=== PATIENT | female | born 1945 | race Caucasian/White ===

== ENCOUNTER → 2018-04-05 12:41 | Outpatient (CLI) | payer MEDICARE, SELFPAY ==
[2018-04-05 15:33] LABS: ALB/GLOB Ratio 0.9 RATIO (0.9-2.4); AST(SGOT) 18 U/L (15-37); Alanine Aminotransfer ALT/SGPT 18 U/L (13-56); Albumin, Serum 3.3 g/dL (3.2-5.0); Alkaline Phosphatase 76 U/L (45-117); Anion Gap 7 (5-15); BUN 13 mg/dL (7-18); BUN/Creat Ratio 18.9 RATIO (10-20); Calcium,Total 8.7 mg/dL (8.5-10.1); Chloride 110 mmol/L (98-107); Cholesterol 152 mg/dL (200); Creatinine, Serum 0.69 mg/dL (0.55-1.02); EST Glomerular Filtration Rate 89 mL/min (>60); Est Glom Filt Rate - Afr Amer 108 mL/min (>60); Globulin 3.6 g/dL (2.2-4.2); Glucose 77 mg/dL (74-106); High Density Lipoprotein 57 mg/dL; Potassium 3.8 mmol/L (3.5-5.1); Protein, Total 6.9 g/dL (6.4-8.2); Sodium Level 147 mmol/L (136-145); Triglycerides 73 mg/dL; Very Low Density Lipoprotein 15 mg/dL (5-40)
[2018-04-06 08:28] LABS: Vitamin D,25 Hydroxy 45.8 ng/mL (29.95-100.01)
== END ==
PROVIDERS: Family Provider Family Medicine; PCP Family Medicine; Visit Provider Family Medicine
DX: E55.9 Vitamin D deficiency, unspecified (principal); I10 Essential (primary) hypertension; E78.2 Mixed hyperlipidemia
CPT/HCPCS: 80053; 80061; 82306

== ENCOUNTER → 2018-09-30 12:37 | Outpatient (CLI) | payer MEDICARE, SELFPAY ==
[2018-09-30 13:07] LABS: ALB/GLOB Ratio 0.9 RATIO (0.9-2.4); AST(SGOT) 22 U/L (15-37); Alanine Aminotransfer ALT/SGPT 34 U/L (13-56); Albumin, Serum 3.4 g/dL (3.2-5.0); Alkaline Phosphatase 102 U/L (45-117); Anion Gap 9 (5-15); BUN 14 mg/dL (7-18); Calcium,Total 8.8 mg/dL (8.5-10.1); Chloride 107 mmol/L (98-107); Cholesterol 190 mg/dL (200); Creatinine, Serum 0.61 mg/dL (0.55-1.02); EST Glomerular Filtration Rate 102 mL/min (>60); Est Glom Filt Rate - Afr Amer 124 mL/min (>60); Globulin 3.7 g/dL (2.2-4.2); Glucose 84 mg/dL (74-106); High Density Lipoprotein 66 mg/dL; Potassium 4.1 mmol/L (3.5-5.1); Protein, Total 7.1 g/dL (6.4-8.2); Sodium Level 144 mmol/L (136-145); Triglycerides 77 mg/dL; Very Low Density Lipoprotein 15 mg/dL (5-40)
[2018-09-30 13:12] LABS: Vitamin D,25 Hydroxy 37.6 ng/mL (29.95-100.01)
== END ==
PROVIDERS: Family Provider Family Medicine; PCP Family Medicine; Referring Provider Family Medicine; Visit Provider Family Medicine
DX: E78.2 Mixed hyperlipidemia (principal); E55.9 Vitamin D deficiency, unspecified
CPT/HCPCS: 80053; 80061; 82306

== ENCOUNTER → 2019-04-05 11:40 | Outpatient (CLI) | payer MEDICARE, SELFPAY ==
[2017-03-10 23:12] VITALS: BMI 26.1
[2019-04-05 12:45] LABS: ALB/GLOB Ratio 0.9 RATIO (0.9-2.4); AST(SGOT) 17 U/L (15-37); Alanine Aminotransfer ALT/SGPT 18 U/L (13-56); Albumin, Serum 3.1 g/dL (3.2-5.0); Alkaline Phosphatase 84 U/L (45-117); Anion Gap 4 (5-15); BUN 22 mg/dL (7-18); BUN/Creat Ratio 27.5 RATIO (10-20); Calcium,Total 8.6 mg/dL (8.5-10.1); Chloride 110 mmol/L (98-107); Cholesterol 148 mg/dL (200); EST Glomerular Filtration Rate 75 mL/min (>60); Est Glom Filt Rate - Afr Amer 90 mL/min (>60); Globulin 3.6 g/dL (2.2-4.2); Glucose 84 mg/dL (74-106); High Density Lipoprotein 55 mg/dL; Potassium 4.1 mmol/L (3.5-5.1); Protein, Total 6.7 g/dL (6.4-8.2); Sodium Level 142 mmol/L (136-145); Triglycerides 65 mg/dL; Very Low Density Lipoprotein 13 mg/dL (5-40)
[2019-04-05 12:52] LABS: Vitamin D,25 Hydroxy 40.1 ng/mL (29.95-100.01)
== END ==
PROVIDERS: Family Provider Family Medicine; PCP Family Medicine; Referring Provider Family Medicine; Visit Provider Family Medicine
DX: E55.9 Vitamin D deficiency, unspecified (principal); E78.2 Mixed hyperlipidemia; I10 Essential (primary) hypertension
CPT/HCPCS: 80053; 80061; 82306

== ENCOUNTER → 2019-10-05 12:28 | Outpatient (CLI) | payer MEDICARE, SELFPAY ==
[2019-10-05 13:19] LABS: ALB/GLOB Ratio 0.9 RATIO (0.9-2.4); AST(SGOT) 16 U/L (15-37); Alanine Aminotransfer ALT/SGPT 23 U/L (13-56); Albumin, Serum 3.5 g/dL (3.2-5.0); Alkaline Phosphatase 90 U/L (45-117); Anion Gap 3 (5-15); BUN 17 mg/dL (7-18); BUN/Creat Ratio 24.4 RATIO (10-20); Calcium,Total 9.3 mg/dL (8.5-10.1); Chloride 110 mmol/L (98-107); Cholesterol 183 mg/dL (200); EST Glomerular Filtration Rate 87 mL/min (>60); Est Glom Filt Rate - Afr Amer 106 mL/min (>60); Globulin 3.7 g/dL (2.2-4.2); Glucose 84 mg/dL (74-106); High Density Lipoprotein 68 mg/dL; Protein, Total 7.2 g/dL (6.4-8.2); Sodium Level 144 mmol/L (136-145); Triglycerides 94 mg/dL; Very Low Density Lipoprotein 19 mg/dL (5-40)
[2019-10-05 13:45] LABS: Vitamin D,25 Hydroxy 41.4 ng/mL (29.95-100.01)
== END ==
PROVIDERS: Family Provider Family Medicine; PCP Family Medicine; Referring Provider Family Medicine; Visit Provider Family Medicine
DX: E78.2 Mixed hyperlipidemia (principal); E55.9 Vitamin D deficiency, unspecified; I10 Essential (primary) hypertension
CPT/HCPCS: 80053; 80061; 82306

== ENCOUNTER → 2020-04-08 12:49 | Outpatient (CLI) | payer MEDICARE, SELFPAY ==
[2020-04-08 13:46] LABS: Vitamin D,25 Hydroxy 43.6 ng/mL
[2020-04-08 13:47] LABS: Cholesterol 153 mg/dL (200); High Density Lipoprotein 53 mg/dL; Triglycerides 71 mg/dL; Very Low Density Lipoprotein 14 mg/dL (5-40)
== END ==
PROVIDERS: PCP Family Medicine; Referring Provider Family Medicine; Visit Provider Family Medicine
DX: E55.9 Vitamin D deficiency, unspecified (principal); I10 Essential (primary) hypertension
CPT/HCPCS: 80061; 82306

== ENCOUNTER → 2020-10-09 13:16 | Outpatient (CLI) | payer MEDICARE, SELFPAY ==
[2017-03-10 23:12] VITALS: BMI 26.1
[2020-10-09 15:00] LABS: ALB/GLOB Ratio 0.9 RATIO (0.9-2.4); AST(SGOT) 10 U/L (15-37); Alanine Aminotransfer ALT/SGPT 17 U/L (13-56); Albumin, Serum 3.5 g/dL (3.2-5.0); Alkaline Phosphatase 101 U/L (45-117); Anion Gap 3 (5-15); BUN 19 mg/dL (7-18); BUN/Creat Ratio 23.1 RATIO (10-20); Chloride 109 mmol/L (98-107); Cholesterol 193 mg/dL (200); Creatinine, Serum 0.82 mg/dL (0.55-1.02); EST Glomerular Filtration Rate 72 mL/min (>60); Est Glom Filt Rate - Afr Amer 87 mL/min (>60); Globulin 3.8 g/dL (2.2-4.2); Glucose 82 mg/dL (74-106); High Density Lipoprotein 64 mg/dL; Potassium 3.9 mmol/L (3.5-5.1); Protein, Total 7.3 g/dL (6.4-8.2); Sodium Level 144 mmol/L (136-145); Triglycerides 119 mg/dL; Very Low Density Lipoprotein 24 mg/dL (5-40)
== END ==
PROVIDERS: PCP Family Medicine; Visit Provider Family Medicine
DX: E78.2 Mixed hyperlipidemia (principal); I10 Essential (primary) hypertension
CPT/HCPCS: 80053; 80061

== ENCOUNTER → 2021-09-22 12:25 | Outpatient (CLI) | payer MEDICARE, SELFPAY ==
[2021-09-22 13:38] LABS: Vitamin D,25 Hydroxy 33.8 ng/mL
[2021-09-22 13:42] LABS: Cholesterol 192 mg/dL (200); High Density Lipoprotein 67 mg/dL; Thyroid Stim Hormone (TSH) 2.35 uIU/mL (0.358-3.74); Triglycerides 78 mg/dL; Very Low Density Lipoprotein 16 mg/dL (5-40)
== END ==
PROVIDERS: PCP Family Medicine; Visit Provider Family Medicine
DX: E55.9 Vitamin D deficiency, unspecified (principal); E78.2 Mixed hyperlipidemia; E89.0 Postprocedural hypothyroidism
CPT/HCPCS: 80061; 82306; 84443

== ENCOUNTER 2022-03-17 08:18 | Inpatient (IN) | payer MEDICARE, SELFPAY ==
[2022-03-17] VITALS (28 sets, daily range): BP systolic 66–148; BP diastolic 36–116; PULSE 71–150; RESP 16–34; TEMP 36.1–38.8; O2SAT 89–98; BMI 24.6; BMI 26.0
--- NOTE | 2022-03-17 08:39 | EDS_ITS ---
HPI HPI - GI History of Present Illness Chief Complaint: Nausea/Vomiting Informant: patient Abdominal Pain/Flank Pain Onset: Days (4) Context: Gradual Onset Timing: Continuous Quality: Cramping Location: Right Flank Worsened by: Nothing Relieved by: Nothing Nausea/Vomiting/Emesis GI Symptom: Positive for Nausea and Vomiting Onset: Days (4) Quality: Positive for Nonbilious; Negative for Blood streaks, Coffee ground or Hematemesis Diarrhea/Melena/Hematochezia GI Symptom: Positive for Diarrhea; Negative for Melena or Hematochezia Onset: Days (4) Stool Quality: Positive for Watery Associated Symptoms Associated Symptoms: Negative for Dysuria, Frequency, Hematuria or Urgency Narrative Narrative: Patient presents with nausea, vomiting, diarrhea, and back pain that has been constant for the past 4 days. Patient states it is gradually gotten worse. Patient describes it as cramping. Patient states the pain is mainly over the right lower flank area. Patient states she is unable to keep anything down. Patient denies any hematemesis or coffee-ground emesis. Patient denies any melena or hematochezia. Patient denies any dysuria, urgency, frequency, or hematuria. [facility] Medical History (Updated 03/17/22 @ 14:[address] Shalom Yun, DO) COPD (chronic obstructive pulmonary disease) Diverticulosis GERD (gastroesophageal reflux disease) History of nephrolithiasis Hypertension Home Medications lactobacillus combination no.4 3 billion cell capsule (Probiotic) 1 ea PO DAILY SUPPLEMENT 03/10/17 [History Last Taken 03/14/22] lisinopril 10 mg tablet 1 tab PO DAILY 03/10/17 [History Last Taken 03/14/22] simvastatin 40 mg tablet 40 mg PO QHS 03/10/17 [History Last Taken 03/14/22] timolol maleate 0.5 % eye drops 1 drp BID 03/10/17 [History Last Taken 03/17/22] brimonidine 0.2 % eye drops 1 drp EACH EYE BID GLUACOMA 03/17/22 [History Last Taken 03/17/22] cholecalciferol (vitamin D3) 25 mcg (1,000 unit) tablet 25 mcg PO DAILY SUPPLEMENT 03/17/22 [History Last Taken 03/14/22] magnesium oxide 400 mg PO DAILY 03/17/22 [History Last Taken 03/14/22] omega-3 fatty acids-vitamin E 1,000 mg capsule 1 cap PO DAILY SUPPLEMENT 03/17/22 [History Last Taken 03/14/22] Allergy/AdvReac Type Severity Reaction Status Date / Time No Known Allergies Allergy Verified 03/17/22 08:19 Surgical History (Updated 03/17/22 @ 08:[address] Shalom Yun, DO) History of herniorrhaphy Hx of hysterectomy Social History Smoking Status: Former smoker ROS ROS ED Constitutional Constitutional ED: Denies chills or fever(s) Eyes Eyes: Reports blurry vision; Denies change in vision ENT ENT ED: Denies rhinorrhea or sore throat Cardiovascular Cardiovascular: Denies chest pain or palpitations Respiratory/Chest Respiratory/Chest: Denies cough or dyspnea Gastrointestinal Gastrointestinal: Reports abdominal pain, diarrhea, nausea and vomiting Genitourinary Genitourinary ED: Denies dysuria or hematuria Musculoskeletal Musculoskeletal: Reports back pain; Denies neck pain Integumentary Denies abscess or rash Neurologic Neurologic: Denies headache(s) or weakness Allergic/Immunologic Allergic/Immunologic ED: Denies mouth swelling or urticaria EXAM Physical Exam Const Vital Signs: 03/17/22 08:19 03/17/22 10:43 03/17/22 12:08 Temperature 96.9 F L Temperature Source Temporal Pulse Rate 96 71 71 Respiratory Rate 18 16 16 Blood Pressure 93/73 128/76 H 148/73 H Blood Pressure Mean 79 93 98 Pulse Ox 96 98 98 Oxygen Delivery Method Room Air Room Air Room Air Oxygen Flow Rate (L/min) 03/17/22 13:44 Temperature Temperature Source Pulse Rate 150 H Respiratory Rate 34 H Blood Pressure 130/85 H Blood Pressure Mean 100 Pulse Ox 92 Oxygen Delivery Method Nasal Cannula Oxygen Flow Rate (L/min) 2 Positive well nourished and well developed General Appearance ED: well developed HEENT Reports moist mucous membranes Neck supple and no JVD Resp normal respiratory effort and clear to auscultation bilaterally Cardio regular rate, regular rhythm and no murmurs GI normal to inspection, nondistended, normoactive bowel sounds and non-tender Palpation: soft Extremity normal to inspection General Extremety ED: Negative for edema or tenderness General Extremity: Negative for edema Neuro oriented x3, CN's II-XII intact bilaterally and no sensory deficits noted Sensorium / Orientation: alert Motor Exam: strength 5/5 throughout Psych mental status grossly normal Skin no rashes or lesions noted MDM MDM MDM Narrative Medical decision making narrative: Patient was given IV fluids and Zofran here. Patient was also given a dose of morphine. CBC shows a leukocytosis of 18.0. Basic metabolic profile showed a BUN of 56 and creatinine of 2.41 which were increased from baseline. Hepatic profile was essentially within normal limits. Lipase was normal. CT scan of the abdomen and pelvis was obtained. There is an 8 mm obstructing stone at the left UPJ with moderate hydronephrosis and perinephric edema. This was interpreted by the radiologist and reviewed by myself. Urinalysis shows leukocyte esterases of 500 with 25-50 red blood cells and 25-50 white blood cells. There is 3+ bacteria. Urine culture was ordered. Blood cultures were ordered. Patient was given a dose of Rocephin here. Case was discussed with Dr. Mak. She recommended admitting the patient to the hospitalist service but keep the patient n.p.o. She states she will need to place a stent. Case was discussed with the hospitalist. She will admit the patient to her service. As I was talking to the hospitalist, patient went into atrial fibrillation with rapid ventricular response. EKG was ordered. On my interpretation, it shows atrial fibrillation with a rate of 146. There are nonspecific ST-T wave changes. Patient was given a dose of Cardizem here. Patient will be admitted to PCU. Patient and family understood and were agreeable with the plan. All questions were answered. Lab Data Attestation: I reviewed the patient's lab results. Labs: Laboratory Results - last 24 hr 03/17/22 03/17/22 03/17/22 08:32 08:32 08:32 WBC 18.0 H RBC 4.16 L Hgb 12.2 Hct 36.2 L MCV 87.0 MCH 29.3 MCHC 33.7 RDW Std Deviation 45.0 H RDW Coeff of Isaiah 14.0 Plt Count 170 MPV 11.5 Neut % (Auto) Not Reportable Absolute Neuts (auto) 15.8 H Absolute Lymphs (auto) 0.90 Total Counted 100 Neutrophils % (Manual) 70 Band Neutrophils % 18 H Lymphocytes % (Manual) 5 L Monocytes % (Manual) 7 Diff Path Review May foll Platelet Estimate ADEQUATE RBC Morphology NORM C+C Sodium 135 L Potassium 3.8 Chloride 100 Carbon Dioxide 23.0 Anion Gap 12 BUN 56 H Creatinine 2.41 H Estim Creat Clear Calc 15.46 Est GFR (MDRD) Af Amer 25 L Est GFR (MDRD) Non-Af 21 L BUN/Creatinine Ratio 23.2 H Glucose 129 H Calcium 8.7 Total Bilirubin 1.00 Direct Bilirubin 0.34 H AST 43 H ALT 29 Alkaline Phosphatase 115 Total Protein 6.8 Albumin 2.5 L Globulin 4.3 H Lipase 41 L Urine Color Urine Clarity Urine pH Ur Specific [place] Urine Protein Urine Glucose (UA) Urine Ketones Urine Occult Blood Urine Nitrite Urine Bilirubin Urine Urobilinogen Ur Leukocyte Esterase Urine RBC Urine WBC Ur Squamous Epith Cells Urine Bacteria Fine Granular Casts Urine Mucus 03/17/22 11:54 WBC RBC Hgb Hct MCV MCH MCHC RDW Std Deviation RDW Coeff of Isaiah Plt Count MPV Neut % (Auto) Absolute Neuts (auto) Absolute Lymphs (auto) Total Counted Neutrophils % (Manual) Band Neutrophils % Lymphocytes % (Manual) Monocytes % (Manual) Diff Path Review Platelet Estimate RBC Morphology Sodium Potassium Chloride Carbon Dioxide Anion Gap BUN Creatinine Estim Creat Clear Calc Est GFR (MDRD) Af Amer Est GFR (MDRD) Non-Af BUN/Creatinine Ratio Glucose Calcium Total Bilirubin Direct Bilirubin AST ALT Alkaline Phosphatase Total Protein Albumin Globulin Lipase Urine Color Yellow Urine Clarity Sl. Cloudy Urine pH 6.0 Ur Specific [place] 1.020 Urine Protein 100 H Urine Glucose (UA) Normal Urine Ketones Negative Urine Occult Blood 250 H Urine Nitrite Negative Urine Bilirubin Negative Urine Urobilinogen Normal Ur Leukocyte Esterase 500 H Urine RBC 25-50 SEEN Urine WBC 25-50 SEEN Ur Squamous Epith Cells 0-5 SEEN Urine Bacteria 3+ Fine Granular Casts 0-5 SEEN Urine Mucus 0 SEEN Radiography Diagnostic Testing: Clinical Impression(s) from Imaging Studies Abdomen/Pelvis CT 03/17/22 08:45 IMPRESSION: 8 mm obstructing stone at the left ureteropelvic junction with moderate hydronephrosis and perinephric edema. Electronically Signed: Calvin Perez MD at 9:28 EDT , Discharge Plan Triage Chief Complaint: Nausea/Vomiting ED Provider: Shalom Yun Dx/Rx/DC Orders Clinical Impression: Calculus of proximal left ureter, Pyelonephritis, Atrial fibrillation with rapid ventricular response Prescriptions: No Action simvastatin 40 MG tablet 40 mg PO QHS Label Comments: cholesterol lisinopril 10 MG tablet 1 tab PO DAILY Label Comments: blood pressure timolol maleate 1 DROP drops 1 drp Each Eye BID Label Comments: glaucoma Probiotic 1 EACH capsule 1 ea PO DAILY Label Comments: supplement brimonidine 0.2 % drops 1 drp EACH EYE BID Label Comments: INSTILL 1 DROP IN BOTH EYES TWICE DAILY Fish Oil 1,000 mg Capsule 1 cap PO DAILY cholecalciferol (vitamin D3) 25 mcg (1,000 unit) Tablet 25 mcg PO DAILY magnesium oxide 400 mg magnesium Tablet 400 mg PO DAILY Primary Care Provider: Sung Rosario Referrals: Sung Rosario MD [Primary Care Provider] - Disposition Disposition: Acute Care Hospital [facility]
--- NOTE | 2022-03-17 08:45 | CT_ITS ---
STUDY: CT ABDOMEN AND PELVIS WITHOUT CONTRAST REASON FOR EXAM: Female, 76 years old. Right flank pain RADIATION DOSAGE (If Supplied By Facility): CTDIvol = ( 6.68 ) mGy, DLP = ( 330.49 ) mGycm TECHNIQUE: Transaxial images were obtained from the dome of the diaphragm to the symphysis pubis without oral contrast, and without intravenous contrast. Sagittal and coronal images were reconstructed. Individualized dose optimization techniques were used for this CT. COMPARISON: None. FINDINGS: The visualized lung bases are unremarkable. The visualized portions of the heart are within normal limits. Normal liver. Normal gallbladder and extrahepatic biliary system. Normal spleen. Normal pancreas. Normal bilateral adrenal glands. Normal right kidney. 8 mm obstructing stone at the left ureteropelvic junction with moderate hydronephrosis and perinephric edema. Normal visualized stomach. Normal small intestine. Normal colon. There is non-visualization of the appendix. Normal abdominal aorta. Normal inferior vena cava. Normal retroperitoneum. Normal urinary bladder. Normal abdominal wall. Mild levoscoliosis of the lumbar spine which are this disease. CT/Abdomen/Pelvis without Cont IMPRESSION: 8 mm obstructing stone at the left ureteropelvic junction with moderate hydronephrosis and perinephric edema. Electronically Signed: Calvin Perez MD at 9:28 EDT ,
[2022-03-17 08:46] LABS: Hematocrit 36.2 % (37-47); Hemoglobin 12.2 g/dL (12.0-15.0); Mean Corp Hgb Conc 33.7 g/dL (32-36); Mean Corpuscular Hgb 29.3 pg (27.0-32.0); Mean Platelet Vol. 11.5 fl (6.2-12.0); POSITIVE COUNT YES; POSITIVE MORPHOLOGY YES; Platelet Count 170 K/mm3 (150-450); Red Blood Count 4.16 M/mm3 (4.2-5.4)
[2022-03-17 08:50] LABS: Anion Gap 12 (5-15); BUN 56 mg/dL (7-18); BUN/Creat Ratio 23.2 RATIO (10-20); Calcium,Total 8.7 mg/dL (8.5-10.1); Chloride 100 mmol/L (98-107); Creatinine, Serum 2.41 mg/dL (0.55-1.02); EST Glomerular Filtration Rate 21 mL/min (>60); Est Glom Filt Rate - Afr Amer 25 mL/min (>60); Estimated Creatinine Clearance 15.46 ml/min; Glucose 129 mg/dL (74-106); Potassium 3.8 mmol/L (3.5-5.1); Sodium Level 135 mmol/L (136-145)
[2022-03-17] MEDS: 0.9% Normal Saline 1,000 ML 1000 ML IV ×3 (08:50→14:21)
[2022-03-17] MEDS: Ondansetron 4 MG/2 ML Vial IV (08:51)
[2022-03-17 08:54] LABS: Differential Indicated MANUAL DIFF
[2022-03-17 09:16] LABS: AST(SGOT) 43 U/L (15-37); Alanine Aminotransfer ALT/SGPT 29 U/L (13-56); Albumin, Serum 2.5 g/dL (3.2-5.0); Alkaline Phosphatase 115 U/L (45-117); Bilirubin, Direct 0.34 mg/dL (0.00-0.30); Globulin 4.3 g/dL (2.2-4.2); Lipase 41 U/L (73-393); Protein, Total 6.8 g/dL (6.4-8.2)
[2022-03-17 09:31] LABS: Lymphocyte 5 % (19-41); Monocyte 7 % (0-10); Neutrophil-Band 18 % (0-5); Neutrophil-Segmented 70 % (47-70); Total Cells Counted 100 (MANUAL DIFF)
[2022-03-17 09:33] LABS: Platelet Estimate ADEQUATE (ADEQ); Red Cell Morphology NORM C+C NORMAL (NORM C&C)
[2022-03-17 09:35] LABS: Absolute Neutrophil Count 15.8 X10^3/uL (2.0-7.7)
[2022-03-17 12:03] LABS: Mucous, Urine 0 SEEN /hpf (<or=2+)
[2022-03-17 12:26] LABS: Color, Urine Yellow (Yellow); Glucose, Dipstick Normal (Normal); Ketone-Dipstick Negative (Negative); Leukocyte Esterase-Dipstick 500 /ul (Negative); Nitrite-Dipstick Negative (Negative); Occult Blood-Urine 250 /ul (Negative); Protein-Dipstick 100 mg/dl (Negative); Urine Bilirubin Dipstick Negative (Negative); Urine Clarity Sl. Cloudy (Clear); Urine Urobilinogen Normal (Normal)
[2022-03-17] MEDS: Ceftriaxone 1 GM/50 ML BAG IV (12:30)
[2022-03-17 12:41] LABS: Bacteria 3+ /hpf (None Seen); Fine Granular Cast- Urine 0-5 SEEN /lpf (0-5); Red Blood Cells-Urine 25-50 SEEN /hpf (0-5); Squamous Epithelial Cells - UA 0-5 SEEN /hpf (5-10); White Blood Cells 25-50 SEEN /hpf (0-5)
[2022-03-17] MEDS: Morphine 4 MG/ML Syringe IV (13:41)
--- NOTE | 2022-03-17 13:54 | ED.RN ---
THIS RN AT BEDSIDE TO MEDICATE PATIENT. PT WITH SOB, PALE IN COLOR. PT WAS SITTING UP IN BED, ASSISTED BACK TO BED AND PLACED ON MONITOR. PT HR IN 170'S, PT WITH INCREASED WORK OF BREATHING. PT SATTING 87% MON ROOM AIR. PT PLACED ON 2L NC. MEDICATED WITH MORPHINE PER ORDER. DR. EASTON AT BEDSIDE.
--- NOTE | 2022-03-17 13:55 | EKG12_ITS ---
Test Reason : SOB Blood Pressure : / mmHG Vent. Rate : 146 BPM Atrial Rate : 141 BPM P-R Int : 000 ms QRS Dur : 080 ms QT Int : 330 ms P-R-T Axes : 000 035 236 degrees QTc Int : 514 ms Poor data quality, interpretation may be adversely affected Atrial fibrillation Nonspecific ST and T wave abnormality Abnormal ECG Confirmed by JOSE RAMIREZ, PHYLLIS ([id number]), technical writer and editor BEHZAD ALFORD ([id number]) on 03/19/2022 10:19:56 AM Referred By: JEMMA Confirmed By:PHYLLIS GARCIA MD
[2022-03-17] MEDS: dilTIAZem 25 MG/5 ML Vial 20 MG IV BOLUS (14:02)
[2022-03-17 14:49] LABS: Magnesium 1.8 mg/dL (1.6-2.6)
--- NOTE | 2022-03-17 15:18 | ECHOCS_ITS ---
Reason For Study: Afib/Flutter Procedure This was a 2D Doppler, Color Flow transthoracic echocardiogram. The study was technically difficult. Contrast injection was performed. Exam performed portable in ICU/CCU. Left Ventricle Normal LV size. Left ventricular systolic function is normal. The estimated ejection fraction is 65 %. No regional wall motion abnormalities noted. Right Ventricle Normal RV size. Normal systolic function. Atria The left atrium is mildly enlarged. The right atrium is mildly enlarged. No doppler evidence for ASD. Mitral Valve There is no mitral annular calcification. Mild focal mitral valve calcification of the anterior leaflet. Mitral valve doming/Hockey Sticking. Moderate (2+) eccentric mitral valve insufficiency. Tricuspid Valve Normal tricuspid valve. Moderate (2+) tricuspid valve insufficiency. Right ventricular systolic pressure estimated to be 38 mmHg. Aortic Valve Trisinus/trileaflet aortic valve. Mild diffuse aortic valve thickening. Mild focal aortic valve calcification. Pulmonic Valve The pulmonic valve is not well visualized. Great Vessels Normal sized aortic root. Pericardium/Pleural No pericardial effusion. Medication Diluted definity 2ml given slow IV push to enhance endocardial definition. MMode/2D Measurements & Calculations LVIDd: 4.2 cm IVSd: 0.81 cm Ao root diam: 2.9 cm LVIDs: 2.8 cm LVPWd: 0.70 cm LA dimension: 4.5 cm FS: 32.5 % LAV(MOD-bp): 72.4 ml LVAd ap4: 28.0 cm2 SV(MOD-sp4): 58.0 ml LAV(MOD-bp) Indexed: 43.8 ml/m2 LVLd ap4: 7.4 cm LAV(MOD-sp2): 66.6 ml EDV(MOD-sp4): 86.6 ml LAV(MOD-sp4): 77.9 ml EDV(sp4-el): 89.7 ml LVAs ap4: 14.6 cm2 LVLs ap4: 6.4 cm ESV(MOD-sp4): 28.6 ml ESV(sp4-el): 27.9 ml EF(MOD-sp4): 67.0 % EF(sp4-el): 68.9 % SV(sp4-el): 61.8 ml LA A4 area: 23.8 cm2 RA A4 area: 19.3 cm2 Time Measurements MV dec time: 0.21 sec Doppler Measurements & Calculations MV E max elver: 132.1 cm/sec Lat Peak E' Elver: 8.8 cm/sec Med Peak E' Elver: 6.1 cm/sec MV A max elver: 62.0 cm/sec E/E' lat: 14.9 E/E' med: 21.8 MV E/A: 2.1 MV V2 max: 131.0 cm/sec MV P1/2t max elver: 131.9 cm/sec Ao V2 max: 154.1 cm/sec MV max P.9 mmHg MV P1/2t: 68.1 msec Ao max P.5 mmHg MV V2 mean: 60.9 cm/sec MV mean P.8 mmHg MV dec slope: 567.3 cm/sec2 MV V2 VTI: 31.9 cm MVA(P1/2t): 3.2 cm2 LV V1 max: 111.8 cm/sec MR max elver: 503.0 cm/sec PA V2 max: 81.9 cm/sec LV V1 max P.0 mmHg MR max P.2 mmHg MR mean elver: 376.5 cm/sec MR mean P.0 mmHg MR VTI: 163.5 cm TR max elver: 295.2 cm/sec TR max P.9 mmHg ECHO/Echo Complete W/ Contrast Interpretation Summary The study was technically difficult. Contrast injection was performed. Left ventricular systolic function is normal. The estimated ejection fraction is 65 %. The left atrium is mildly enlarged. The right atrium is mildly enlarged. Mild focal mitral valve calcification of the anterior leaflet. Mitral valve doming/Hockey Sticking Moderate (2+) eccentric mitral valve insufficiency. Moderate (2+) tricuspid valve insufficiency. Mild diffuse aortic valve thickening. Mild focal aortic valve calcification. Right ventricular systolic pressure estimated to be 38 mmHg. Transmitral diastolic flow velocities suggest diastolic dysfunction (pseudonorm al pattern). Ordering Physician: Maliha Webster Referring Physician: MD Marlene Sung Performed By: Cas Brown RCS
--- NOTE | 2022-03-17 15:43 | HP.PCM.HOS_ITS ---
HPI - General General Date of Admission: 03/17/22 Date of Service: 03/17/22 Chief Complaint: Bilateral flank pain, more on the left - 1 week Nausea and vomiting - 3 days HPI Jaye JUAREZ, is a 76 F who presents the above. Patient has history of hypertension, remote history of kidney stones in the past, and was in her usual state of health until about a week ago when she started complaining of bilateral flank and back pain. She denied any fever or chills. Over the last 3 days she has had diarrhea with nausea and vomiting. She last vomited this morning about 2 hours prior to admission. Her vitals in the ED showed blood pressure 93/73, heart rate 96, respiratory rate 18, temperature 96.9 F, oxygen saturation of 96% on room air. Her WBC count 18.0, with bandemia, 18%, Hb 12.2, platelet count 170, sodium 135, potassium 3.8, chloride 100, bicarbonate 23, BUN 56, creatinine 2.41, previous creatinine a year ago was normal, magnesium was 1.8. UA was slightly cloudy, ketones negative, nitrate negative, leukocyte esterase 500, WBC 25-50, 3+ bacteria [facility] Medical History COPD (chronic obstructive pulmonary disease) Diverticulosis GERD (gastroesophageal reflux disease) History of nephrolithiasis Hypertension Home Medications lactobacillus combination no.4 3 billion cell capsule (Probiotic) 1 ea PO DAILY SUPPLEMENT 03/10/17 [History Last Taken 03/14/22] lisinopril 10 mg tablet 1 tab PO DAILY 03/10/17 [History Last Taken 03/14/22] simvastatin 40 mg tablet 40 mg PO QHS 03/10/17 [History Last Taken 03/14/22] timolol maleate 0.5 % eye drops 1 drp BID 03/10/17 [History Last Taken 03/17/22] brimonidine 0.2 % eye drops 1 drp EACH EYE BID GLUACOMA 03/17/22 [History Last Taken 03/17/22] cholecalciferol (vitamin D3) 25 mcg (1,000 unit) tablet 25 mcg PO DAILY S UPPLEMENT 03/17/22 [History Last Taken 03/14/22] magnesium oxide 400 mg PO DAILY 03/17/22 [History Last Taken 03/14/22] omega-3 fatty acids-vitamin E 1,000 mg capsule 1 cap PO DAILY SUPPLEMENT 2 [History Last Taken 03/14/22] Allergy/AdvReac Type Severity Reaction Status Date / Time No Known Allergies Allergy Verified 03/17/22 08:19 Family History Mother Heart disease Father Cancer liver cancer Surgical History History of herniorrhaphy Hx of hysterectomy Social History (Updated 03/17/22 @ 15:[address] Maliha Webster MD) household members: spouse and family Smoking Status: Former smoker alcohol intake: never substance use type: does not use ROS ROS Narrative Constitutional: Reports: Malaise, Weakness, Fatigue, anorexia Denies: Chills, Fever, Night Sweats, Weight Change Eyes: Denies: Blurred vision, Cataracts, Conjunctivae Inflammation, Pain, Rednes s, Vision Change HEENT: Denies: Difficulty Hearing, Difficulty Swallowing, Head Aches, Hearing Changes, Sinus Congestion, Sinus Drainage Cardiovascular: Denies: Chest Pain, Orthopnea, Palpitations Respiratory: Denies: Cough, Shortness of breath at rest, Sputum production Gastrointestinal: Admits to nausea and vomiting Denies: Abdominal Pain Genitourinary: Denies: Dysuria Musculoskeletal: Denies: Joint Pain, Joint stiffness, Joint swelling, Joint Tenderness Skin: Denies: Rash, Wounds Neurological: Denies: Numbness, Tingling, Focal weakness Vital Signs Vital Signs Vital Signs: 03/17/22 08:19 03/17/22 10:43 03/17/22 12:08 Temperature 96.9 F L Temperature Source Temporal Pulse Rate 96 71 71 Respiratory Rate 18 16 16 Blood Pressure 93/73 128/76 H 148/73 H Blood Pressure Mean 79 93 98 Blood Pressure Source Blood Pressure Position Blood Pressure Location Pulse Ox 96 98 98 Oxygen Delivery Method Room Air Room Air Room Air Oxygen Flow Rate (L/min) 03/17/22 13:44 03/17/22 14:10 03/17/22 15:16 Temperature 96.9 F L 102 F H Temperature Source Temporal Temporal Pulse Rate 150 H 107 H 149 H Respiratory Rate 34 H 16 24 H Blood Pressure 130/85 H 124/68 H 117/56 L Blood Pressure Mean 100 86 76 Blood Pressure Source Monitor Blood Pressure Position Semi-Fowlers Blood Pressure Location Right Arm Pulse Ox 92 94 90 Oxygen Delivery Method Nasal Cannula Nasal Cannula Nasal Cannula Oxygen Flow Rate (L/min) 2 2 2 03/17/22 15:18 Temperature Temperature Source Pulse Rate Respiratory Rate Blood Pressure Blood Pressure Mean Blood Pressure Source Blood Pressure Position Blood Pressure Location Pulse Ox Oxygen Delivery Method Nasal Cannula Oxygen Flow Rate (L/min) Weight Weight: 64.592 kg Body Mass Index (BMI) 26.0 Physical Exam Narrative Physical exam: General: Alert, Oriented x3, Cooperative, appears unwell HEENT: Atraumatic Oral: Very dry mucosa, coated, furred tongue Neck: Supple Lungs: Diminished to auscultation Cardiovascular: HS I+II, irregular,tachycardic, holosystolic murmur 3/6 Abdomen: Bowel Sounds Present, Soft, Non Tender Extremities: No edema Skin: No rashes, No breakdown Neurological: Grossly intact Psych/Mental Status: Appropriate Results Lab / Micro Data Result Diagrams: 03/17/22 08:32 03/17/22 08:32 Labs: Laboratory Results - last 24 hr 03/17/22 08:32: WBC 18.0 H, RBC 4.16 L, Hgb 12.2, Hct 36.2 L, MCV 87.0, MCH 29.3, MCHC 33.7, RDW Std Deviation 45.0 H, RDW Coeff of Isaiah 14.0, Plt Count 170, MPV 11.5, Neut % (Auto) Not Reportable, Absolute Neuts (auto) 15.8 H, Absolute Lymphs (auto) 0.90, Total Counted 100, Neutrophils % (Manual) 70, Band Neutrophils % 18 H, Lymphocytes % (Manual) 5 L, Monocytes % (Manual) 7, Diff Path Review January, Platelet Estimate ADEQUATE, RBC Morphology NORM C+C 03/17/22 08:32: Sodium 135 L, Potassium 3.8, Chloride 100, Carbon Dioxide 23.0, Anion Gap 12, BUN 56 H, Creatinine 2.41 H, Estim Creat Clear Calc 15.46, Est GFR (MDRD) Af Amer 25 L, Est GFR (MDRD) Non-Af 21 L, BUN/Creatinine Ratio 23.2 H, Glucose 129 H, Calcium 8.7 03/17/22 08:32: Total Bilirubin 1.00, Direct Bilirubin 0.34 H, AST 43 H, ALT 29, Alkaline Phosphatase 115, Total Protein 6.8, Albumin 2.5 L, Globulin 4.3 H, Lipase 41 L 03/17/22 08:32: Magnesium 1.8 03/17/22 11:54: Urine Color Yellow, Urine Clarity Sl. Cloudy, Urine pH 6.0, Ur Specific [place] 1.020, Urine Protein 100 H, Urine Glucose (UA) Normal, Urine Ketones Negative, Urine Occult Blood 250 H, Urine Nitrite Negative, Urine Bilirubin Negative, Urine Urobilinogen Normal, Ur Leukocyte Esterase 500 H, Urine RBC 25-50 SEEN, Urine WBC 25-50 SEEN, Ur Squamous Epith Cells 0-5 SEEN, Urine Bacteria 3+, Fine Granular Casts 0-5 SEEN, Urine Mucus 0 SEEN Radiology Impression Abdomen/Pelvis CT 03/17/22 08:45 IMPRESSION: 8 mm obstructing stone at the left ureteropelvic junction with moderate hydronephrosis and perinephric edema. Electronically Signed: Calvin Perez MD at 9:28 EDT , Assessment & Plan Assessment/Plan (1) Sepsis: (2) Calculus of proximal left ureter: (3) Atrial fibrillation with rapid ventricular response: PLAN: Plan 1. Sepsis secondary to acute infected kidney stone/Acute complicated UTI Patient is tachycardic, has leukocytosis and has an acute UTI/kidney stone with evidence of acute kidney injury Patient's underlying problem is the large kidney stone which appears infected UA suggestive of acute UTI Patient received IV fluids and IV ceftriaxone Blood and urine cultures were sent from the ED Would continue IV fluids and IV Zosyn Urology consulted from the ED?patient going for ureteroscopy/lithotripsy this evening 2. A. fib with RVR secondary to current sepsis. Patient with no history of A. fib She presented not in A. fib but developed A. fib a few hours ago in the ED She received Cardizem and that gave her transient hypotension that was responsive to fluid Sepsis is the trigger for this current A. fib with RVR Will check TSH, magnesium level(1.8) 2D echo Cardiology consult?discussed with cardiology -we will give digoxin 500 mcg x 1, amiodarone bolus with drip Will continue on IV fluids Would hold off on anticoagulation for now and watch for the next couple of hours to see if it resolved 3. PRADEEP, likely post-renal secondary to 8 mm kidney stone Patient has hydronephrosis on CT of the abdomen and pelvis Previous creatinine was less than 1, creatinine is 2.41 Patient is going for uteroscopy with stent placement today Will trend labs in am 4. Hypertension, now relatively hypotensive Would hold off on lisinopril in the light of PRADEEP Will continue on IV fluids and monitor 5. Hyponatremia, hypovolemic, sodium is 135, will continue on IV fluids, repeat blood work in a.m. 6. Hypomagnesemia, 1.8, replaced, recheck in am 7. Hyperlipidemia, continue statin 8. DVT PPx- SCDs as patient will be going for a procedure; will consider Heparin in am 9. I discussed and explained in details the various types of CODE STATUS-full code, DNR CCA, DNR CC. Patient chose to be DNR CCA, no intubation. Time spent discussing CODE STATUS 18 minutes Charges/Coding Visit Charges Inpatient E&M: 58968 Init Hosp L3 Procedures Hospitalists Procedures: 70053 Advncd Care Plan 30 Min
[2022-03-17] MEDS: Digoxin 250 MCG/ML Ampul 500 MCG IV (15:51)
[2022-03-17 16:14] LABS: Thyroid Stim Hormone (TSH) 1.25 uIU/mL (0.358-3.74)
--- NOTE | 2022-03-17 16:37 | CON.PCM.CA_ITS ---
Assessment & Plan Assessment/Plan (1) Atrial fibrillation with rapid ventricular response: PLAN: The patient is noted to have atrial fibrillation. The etiology may be multifactorial. This could include a combination of her age, hypertension, and her acute noncardiac/infectious disease diagnosis. At the present time the patient is being monitored. She is continuing rate control therapy. This is included a dose of digitalis and attempt to assist with her rate hopefully without any adverse effects on her blood pressure. She may need additional rate control therapy and/or attempt at antiarrhythmic therapy with an attempt at assisting rate as well as hopefully regaining sinus rhythm. This can include agents such as IV amiodarone unless otherwise not tolerated. She may need to be considered for anticoagulant therapy (if she does not regain sinus rhythm) once her urologic procedure is complete and depending upon the results of her procedure. Also, depending upon her clinical course and findings, she may or may not need to be considered for an attempt at synchronized biphasic DC cardioversion. (2) Calculus of proximal left ureter: PLAN: She has been diagnosed with a left ureteral calculus. She is pending further urologic evaluation/procedure to remove this obstruction. (3) Pyelonephritis: PLAN: She has been diagnosed with UTI compatible with pyelonephritis. She has been placed on antibiotic therapy. (4) Sepsis: PLAN: She has been diagnosed with sepsis. She is receiving IV fluids and IV antibiotics. (5) Acute renal insufficiency: PLAN: She does have what appears to be acute renal insufficiency. This may be secondary to her ongoing urologic issues/obstruction/infection. Hopefully this will improve once the obstruction is removed. In the meantime her renal function will need to be taken into consideration with respect to medications/dosages, etc. (6) HLD (hyperlipidemia): PLAN: She has been on lipid-lowering agents. It appears this can be continued unless otherwise contraindicated. (7) Hypertension: QUALIFIERS: Hypertension type: essential hypertension Qualified Code(s): I10 - Essential (primary) hypertension PLAN: She has a history of hypertension. She states that has been reasonably well controlled on her home medications. At the moment her blood pressure is low which may be a combination of etiologies with respect to her atrial fibrillation superimposed upon an underlying sepsis syndrome and any lingering effects from her previous IV diltiazem medication. At the moment she is receiving blood pressure support with IV fluids. (8) Preoperative cardiovascular examination: PLAN: From a cardiovascular standpoint the patient will need continued cardiovascular monitoring with respect to cardiac rate, rhythm, and blood pr essure during and following her surgical procedure. An attempt should be made to avoid significant fluctuations in her vital signs as best as possible during and following her procedure. Based upon her atrial fibrillation it is known that her cardiac rate may remain somewhat elevated during her ongoing acute urologic issues/sepsis. It may be challenging to bring her rate under better control until these issues are brought under better control. She may need support of her blood pressure based upon her diagnosis with IV fluids and/or if need be IV vasopressor agents. Hopefully with no previous cardiovascular diagnosis/symptoms or other objective findings thus far her cardiovascular risk for adverse cardiovascular events from noncardiac surgery will be At a minimum. Addt'l Comments The patient's case has been discussed and reviewed with the patient, the patient's family, and Dr. Webster HPI Consult Data Date of Consult: 03/17/22 HPI Narrative HPI Narrative: MARILEE JUAREZ, is a 76 year old white female who presents who is referred for evaluation of atrial fibrillation/RVR superimposed upon a history of hyperlipidemia and hypertension in the setting of a left ureteral calculus/pyelonephritis/sepsis/acute renal insufficiency. The patient was well until recently when she noted backslash flank discomfort. She subsequently has developed nausea, emesis, and diarrhea. She was noted to develop a fever of 102. She presented to the emergency department for further evaluation. She has been diagnosed with the aforementioned urologic condition. During this evaluation she was noted to have atrial fibrillation with rapid ventricular response. The patient denies any known cardiovascular history. There has been no episodes of chest discomfort suspicious for angina pectoris. She has had no episodes of obvious CHF or pulmonary edema. There is been no near-syncope or syncope. Her family states she has been weak during these symptoms and she did fall. There apparently was no obvious injury. The patient does not recall having to go through any cardiovascular studies in the past other than potentially an ECG. An ECG at [facility] from 03-11-2017 was reported as demonstrating sinus bradycardia. The patient was treated for the atrial fibrillation with diltiazem 20 mg IV push x1. She has been noted to have subsequent diminished blood pressure. She has been treated with additional IV fluids. As her cardiac rate has remained elevated she was also treated with digoxin 500 mcg IV push x1. Her cardiac rate appears to have slowed somewhat. She is pending urologic surgical procedure this day to relieve the aforementioned obstruction. [facility] Medical History COPD (chronic obstructive pulmonary disease) Diverticulosis GERD (gastroesophageal reflux disease) History of nephrolithiasis Hypertension Home Medications lactobacillus combination no.4 3 billion cell capsule (Probiotic) 1 ea PO DAILY SUPPLEMENT 03/10/17 [History Last Taken 03/14/22] lisinopril 10 mg tablet 1 tab PO DAILY 03/10/17 [History Last Taken 03/14/22] simvastatin 40 mg tablet 40 mg PO QHS 03/10/17 [History Last Taken 03/14/22] timolol maleate 0.5 % eye drops 1 drp BID 03/10/17 [History Last Taken 03/17/22] brimonidine 0.2 % eye drops 1 drp EACH EYE BID GLUACOMA 03/17/22 [History Last Taken 03/17/22] cholecalciferol (vitamin D3) 25 mcg (1,000 unit) tablet 25 mcg PO DAILY SUPPLEMENT 03/17/22 [History Last Taken 03/14/22] magnesium oxide 400 mg PO DAILY 03/17/22 [History Last Taken 03/14/22] omega-3 fatty acids-vitamin E 1,000 mg capsule 1 cap PO DAILY SUPPLEMENT 03/17/22 [History Last Taken 03/14/22] Allergy/AdvReac Type Severity Reaction Status Date / Time No Known Allergies Allergy Verified 03/17/22 08:19 Family History Mother Heart disease Father Cancer liver cancer Surgical History History of herniorrhaphy Hx of hysterectomy Social History (Updated 03/17/22 @ 15:[address] Maliha Webster MD) household members: spouse and family Smoking Status: Former smoker alcohol intake: never substance use type: does not use ROS Constitutional Constitutional: Reports fever(s), poor appetite and weakness Eyes Eyes: Reports as per HPI ENT HEENT: Reports as per HPI Cardiovascular Cardiovascular: Reports as per HPI Respiratory/Chest Respiratory/Chest: Reports as per HPI Gastrointestinal Gastrointestinal: Reports diarrhea, nausea and vomiting Genitourinary Genitourinary: Reports as per HPI Musculoskeletal Musculoskeletal: Reports back pain Integumentary Integumentary: Reports as per HPI Neurologic Neurologic: Reports as per HPI Psychiatric Psychiatric: Reports as per HPI Physical Exam Const alert, oriented x3 and no apparent distress HEENT normocephalic, head/scalp atraumatic and hearing grossly normal bilaterally Eyes PERRL, EOMs intact bilaterally and conjunctivae normal Neck full ROM, supple and no JVD Resp normal respiratory effort Cardio Rhythm: abnormal rhythm irregularly irregular Heart Sounds: S1 normal and S2 normal GI normal to inspection, nondistended, normoactive bowel sounds Extremity no pedal edema Skin no rashes or lesions noted Psych mental status grossly normal Risk Stratification Risk Stratification Applicable: No Procedure Criteria Type of Procedure Procedure Type: Elective Elective Risks - COVID COVID Risk Discussion: The surgeon/proceduralist and patient have discussed in detail the risk of exposure to and/or potential harm posed by the COVID-19 virus with having a surgery/procedure at this time versus the risk of delaying the surgery/procedur e. It is not possible to know either the risk of delaying the surgery or procedure or chance of getting an infection with perfect accuracy, but a joint decision was made between the patient and the surgeon/proceduralist to proceed at this time with the scheduled surgery/procedure as indicated on the consent form. Objective Data Vital Signs: Vital Signs Temp Pulse Resp BP Pulse Ox 99.4 F H 112 H 18 93/42 L 94 03/17/22 16:15 03/17/22 16:15 03/17/22 16:15 03/17/22 16:15 03/17/22 16:15 Oxygen Flow Rate (L/min) 5 Oxygen Delivery Method Nasal Cannula Weight: 142 lb 6.4 oz Body Mass Index (BMI) 26.0 Intake & Output: Intake and Output for Last 24 Hours 03/15/22 03/16/22 03/17/22 23:59 23:59 23:59 Intake Total 3050 / 3050 Balance 3050 / 3050 Lab / Micro Data Result Diagrams: 03/17/22 08:32 03/17/22 08:32 Labs: Laboratory Results - last 24 hr 03/17/22 08:32: WBC 18.0 H, RBC 4.16 L, Hgb 12.2, Hct 36.2 L, MCV 87.0, MCH 29.3, MCHC 33.7, RDW Std Deviation 45.0 H, RDW Coeff of Isaiah 14.0, Plt Count 170, MPV 11.5, Neut % (Auto) Not Reportable, Absolute Neuts (auto) 15.8 H, Absolute Lymphs (auto) 0.90, Total Counted 100, Neutrophils % (Manual) 70, Band Neutrophils % 18 H, Lymphocytes % (Manual) 5 L, Monocytes % (Manual) 7, Diff Path Review January, Platelet Estimate ADEQUATE, RBC Morphology NORM C+C 03/17/22 08:32: Sodium 135 L, Potassium 3.8, Chloride 100, Carbon Dioxide 23.0, Anion Gap 12, BUN 56 H, Creatinine 2.41 H, Estim Creat Clear Calc 15.46, Est GFR (MDRD) Af Amer 25 L, Est GFR (MDRD) Non-Af 21 L, BUN/Creatinine Ratio 23.2 H, Glucose 129 H, Calcium 8.7 03/17/22 08:32: Total Bilirubin 1.00, Direct Bilirubin 0.34 H, AST 43 H, ALT 29, Alkaline Phosphatase 115, Total Protein 6.8, Albumin 2.5 L, Globulin 4.3 H, Lipa se 41 L 03/17/22 08:32: Magnesium 1.8 03/17/22 08:32: TSH 1.25 03/17/22 11:54: Urine Color Yellow, Urine Clarity Sl. Cloudy, Urine pH 6.0, Ur Specific [place] 1.020, Urine Protein 100 H, Urine Glucose (UA) Normal, Urine Ketones Negative, Urine Occult Blood 250 H, Urine Nitrite Negative, Urine Bilirubin Negative, Urine Urobilinogen Normal, Ur Leukocyte Esterase 500 H, Urine RBC 25-50 SEEN, Urine WBC 25-50 SEEN, Ur Squamous Epith Cells 0-5 SEEN, Urine Bacteria 3+, Fine Granular Casts 0-5 SEEN, Urine Mucus 0 SEEN Rhythm Strip Rhythm Strip: A-fib Cardiology Labs/Tests 03/17/22 08:32: WBC 18.0 H, RBC 4.16 L, Hgb 12.2, Hct 36.2 L, MCV 87.0, MCH 29.3, MCHC 33.7, Plt Count 170, MPV 11.5, Neut % (Auto) Not Reportable, Absolute Neuts (auto) 15.8 H, Total Counted 100, Neutrophils % (Manual) 70, Band Neutrophils % 18 H, Lymphocytes % (Manual) 5 L, Monocytes % (Manual) 7 03/17/22 08:32: Sodium 135 L, Potassium 3.8, Chloride 100, Carbon Dioxide 23.0, Anion Gap 12, BUN 56 H, Creatinine 2.41 H, Est GFR (MDRD) Af Amer 25 L, Est GFR (MDRD) Non-Af 21 L, BUN/Creatinine Ratio 23.2 H, Glucose 129 H, Calcium 8.7 03/17/22 08:32: Total Bilirubin 1.00, Direct Bilirubin 0.34 H 03/17/22 08:32: Magnesium 1.8 03/17/22 11:54: Urine Color Yellow, Urine Clarity Sl. Cloudy, Urine pH 6.0, Ur Specific [place] 1.020, Urine Protein 100 H, Urine Glucose (UA) Normal, Urine Ketones Negative, Urine Occult Blood 250 H, Urine Nitrite Negative, Urine Bilirubin Negative, Urine Urobilinogen Normal, Ur Leukocyte Esterase 500 H, Urine RBC 25-50 SEEN, Urine WBC 25-50 SEEN Rhythm: Atrial fibrillation EKG: Atrial fibrillation; nonspecific ST/T wave abnormality Radiography Diagnostic Testing: Radiology Impression Abdomen/Pelvis CT 03/17/22 08:45 IMPRESSION: 8 mm obstructing stone at the left ureteropelvic junction with moderate hydronephrosis and perinephric edema. Electronically Signed: Calvin Perez MD at 9:28 EDT , Cardiology Labs/Tests Cardiology Labs/Tests: 03/17/22 08:32: WBC 18.0 H, RBC 4.16 L, Hgb 12.2, Hct 36.2 L, MCV 87.0, MCH 29.3, MCHC 33.7, Plt Count 170, MPV 11.5, Neut % (Auto) Not Reportable, Absolute Neuts (auto) 15.8 H, Total Counted 100, Neutrophils % (Manual) 70, Band Neutrophils % 18 H, Lymphocytes % (Manual) 5 L, Monocytes % (Manual) 7 03/17/22 08:32: Sodium 135 L, Potassium 3.8, Chloride 100, Carbon Dioxide 23.0, Anion Gap 12, BUN 56 H, Creatinine 2.41 H, Est GFR (MDRD) Af Amer 25 L, Est GFR (MDRD) Non-Af 21 L, BUN/Creatinine Ratio 23.2 H, Glucose 129 H, Calcium 8.7 03/17/22 08:32: Total Bilirubin 1.00, Direct Bilirubin 0.34 H 03/17/22 08:32: Magnesium 1.8 03/17/22 11:54: Urine Color Yellow, Urine Clarity Sl. Cloudy, Urine pH 6.0, Ur Specific [place] 1.020, Urine Protein 100 H, Urine Glucose (UA) Normal, Urine Ketones Negative, Urine Occult Blood 250 H, Urine Nitrite Negative, Urine Bilirubin Negative, Urine Urobilinogen Normal, Ur Leukocyte Esterase 500 H, Urine RBC 25-50 SEEN, Urine WBC 25-50 SEEN Cardiology Impression Abdomen/Pelvis CT 03/17/22 08:45 IMPRESSION: 8 mm obstructing stone at the left ureteropelvic junction with moderate hydronephrosis and perinephric edema. Electronically Signed: Calvin Perez MD at 9:28 EDT , Rhythm: EKG: ECHO: Stress Test: Cardiac Cath: PCI: CT Surgery: Holter monitor: EPS: PPM: CXR: Chest CT Scan:
[2022-03-17 17:25] LABS: Bedside Glucose 77 mg/dL (74-106)
--- NOTE | 2022-03-17 18:17 | SUR.PREOP ---
DR. GARAY AND DR. PAGE AT BEDSIDE DISCUSSING ANESTHESIA OPTION. PATIENT STATES AND DISCUSSED WITH DR. PAGE AND JARROD ABOUT CODE STATUS, PATIENT IS FULL CODE. DR. MCGILL DISCUSSED CODE STATUS WITH FAMILY, PATIENT FULL CODE.
--- NOTE | 2022-03-17 18:19 | CON.PCM_ITS ---
Assessment & Plan Assessment/Plan (1) Sepsis: (2) Calculus of proximal left ureter: (3) Atrial fibrillation with rapid ventricular response: (4) Acute renal insufficiency: (5) Hydronephrosis: PLAN: Plan Supportive medical care Cystoscopy left ureteral stent insertion Informed consent obtained I spoke with patient and family We will plan to proceed without anesthesia HPI Consult Data Date of Consult: 03/17/22 HPI Narrative Reason for Consultation: Left ureteral calculus with hydronephrosis, urinary tract infection, sepsis HPI Narrative: MARILEE JUAREZ is a 76 F who presented to the emergency room and was found to have a proximal obstructing left ureteral calculus. She appeared to be ill and was added on to the schedule for cystoscopy and left ureteral stent insertion. By the time I arrived at the hospital she was in the PACU, and atrial fibrillation with RVR, hypotensive, tachycardic with dropping oxygen saturation. She was able to speak short sentences at first. At this time the medicine service was called in and resuscitation efforts began. I spoke with family. It was determined that the patient's CODE STATUS was DNR/CCA. The family did agree to proceed with cystoscopy and left ureteral stent insertion without anesthesia if her vital signs and status allowed. [facility] Medical History (Updated 03/17/22 @ 19:[address] Pati Mak MD) COPD (chronic obstructive pulmonary disease) Diverticulosis GERD (gastroesophageal reflux disease) History of nephrolithiasis Hydronephrosis Hypertension Home Medications lactobacillus combination no.4 3 billion cell capsule (Probiotic) 1 ea PO DAILY SUPPLEMENT 03/10/17 [History Last Taken 03/14/22] lisinopril 10 mg tablet 1 tab PO DAILY 03/10/17 [History Last Taken 03/14/22] simvastatin 40 mg tablet 40 mg PO QHS 03/10/17 [History Last Taken 03/14/22] timolol maleate 0.5 % eye drops 1 drp BID 03/10/17 [History Last Taken 03/17/22] brimonidine 0.2 % eye drops 1 drp EACH EYE BID GLUACOMA 03/17/22 [History Last Taken 03/17/22] cholecalciferol (vitamin D3) 25 mcg (1,000 unit) tablet 25 mcg PO DAILY SUPPLEMENT 03/17/22 [History Last Taken 03/14/22] magnesium oxide 400 mg PO DAILY 03/17/22 [History Last Taken 03/14/22] omega-3 fatty acids-vitamin E 1,000 mg capsule 1 cap PO DAILY SUPPLEMENT 03/17/22 [History Last Taken 03/14/22] Allergy/AdvReac Type Severity Reaction Status Date / Time No Known Allergies Allergy Verified 03/17/22 08:19 Family History Mother Heart disease Father Cancer liver cancer Surgical History History of herniorrhaphy Hx of hysterectomy Social History (Updated 03/17/22 @ 15:[address] Maliha Webster MD) household members: spouse and family Smoking Status: Former smoker alcohol intake: never substance use type: does not use ROS Review of Systems ROS Unobtainable: due to mental status Physical Exam Const Orientation / Consciousness: awake HEENT normocephalic, head/scalp atraumatic, external ears normal and external nose normal Eyes General Eye: normal appearance of both eyes Neck supple General: trachea midline Chest inspection of chest normal Resp Effort and Inspection: symmetric chest movement Cardio Cardio Narrative: irregularly irregular, tachycardic Rate: tachycardic GI Palpation: soft Lab / Micro Data Result Diagrams: 03/17/22 08:32 03/17/22 08:32 Labs: Laboratory Results - last 24 hr 03/17/22 08:32: WBC 18.0 H, RBC 4.16 L, Hgb 12.2, Hct 36.2 L, MCV 87.0, MCH 29.3, MCHC 33.7, RDW Std Deviation 45.0 H, RDW Coeff of Isaiah 14.0, Plt Count 170, MPV 11.5, Neut % (Auto) Not Reportable, Absolute Neuts (auto) 15.8 H, Absolute Lymphs (auto) 0.90, Total Counted 100, Neutrophils % (Manual) 70, Band Neutrophils % 18 H, Lymphocytes % (Manual) 5 L, Monocytes % (Manual) 7, Diff Path Review January, Platelet Estimate ADEQUATE, RBC Morphology NORM C+C 03/17/22 08:32: Sodium 135 L, Potassium 3.8, Chloride 100, Carbon Dioxide 23.0, Anion Gap 12, BUN 56 H, Creatinine 2.41 H, Estim Creat Clear Calc 15.46, Est GFR (MDRD) Af Amer 25 L, Est GFR (MDRD) Non-Af 21 L, BUN/Creatinine Ratio 23.2 H, Glucose 129 H, Calcium 8.7 03/17/22 08:32: Total Bilirubin 1.00, Direct Bilirubin 0.34 H, AST 43 H, ALT 29, Alkaline Phosphatase 115, Total Protein 6.8, Albumin 2.5 L, Globulin 4.3 H, Lipase 41 L 03/17/22 08:32: Magnesium 1.8 03/17/22 08:32: TSH 1.25 03/17/22 11:54: Urine Color Yellow, Urine Clarity Sl. Cloudy, Urine pH 6.0, Ur Specific [place] 1.020, Urine Protein 100 H, Urine Glucose (UA) Normal, Urine Ketones Negative, Urine Occult Blood 250 H, Urine Nitrite Negative, Urine Bilirubin Negative, Urine Urobilinogen Normal, Ur Leukocyte Esterase 500 H, Urine RBC 25-50 SEEN, Urine WBC 25-50 SEEN, Ur Squamous Epith Cells 0-5 SEEN, Urine Bacteria 3+, Fine Granular Casts 0-5 SEEN, Urine Mucus 0 SEEN 03/17/22 17:22: POC Glucose 77 Micro: Microbiology 03/17/22 17:15 Nasal Secretion SARS-CoV-2 Antigen (Rapid) - Final Rhythm Strip Rhythm Strip: A-fib Radiology Impression Abdomen/Pelvis CT 03/17/22 08:45 IMPRESSION: 8 mm obstructing stone at the left ureteropelvic junction with moderate hydronephrosis and perinephric edema. Electronically Signed: Calvin Perez MD at 9:28 EDT ,
--- NOTE | 2022-03-17 18:27 | NURSING ---
Report called to ICU nurse Lakeisha. Pt will go to ICU after her procedure.
--- NOTE | 2022-03-17 18:39 | SUR.PREOP ---
Please see paper chart for vitals on patient.
[2022-03-17] MEDS: Lidocaine Jelly 2% 20 ML Syringe (URO-JET) 1 APPLIC (18:45)
--- NOTE | 2022-03-17 19:18 | PCM.OPRPT ---
Report of Operation Date of Procedure: 03/17/22 Pre-Operative Diagnosis: Obstructing left proximal ureteral calculus with hydronephrosis, sepsis, renal insufficiency Post-Operative Diagnosis: Same Surgery/Procedure Performed:: Cystoscopy with left ureteral stent insertion Surgeon: Pati Mak Type of Anesthesia: Local Specimen's removed: None Description of Procedure: The patient is a septic 76-year-old female with an obstructing left proximal ureteral calculus. Informed consent was obtained for placement of a left ureteral stent without anesthesia. The patient was taken from the PACU to the operating room and placed on the operating room table. Anesthesia monitored the vital signs throughout the case and obtained access for art line monitoring. Once she was moved into position her legs were gently positioned in the stirrups. She was then prepped and draped in usual sterile fashion. The cystoscope was inserted through the urethra under direct visualization and into the urinary bladder. The urine was purulent, and malodorous. The bladder was emptied and the left ureteral orifice was identified. It was intubated with a 0.035 Glidewire which was seen fluoroscopically in the left renal pelvis. A 6 Persian 24 cm JJ stent was then gently passed over the wire with good curling in the renal pelvis as well as the urinary bladder. The stone appeared to be within the curl of the stent. Purulent urine was seen exuding from the left ureteral orifice and stent. At this time the cystoscope was removed and a Hudson catheter was placed to straight drain with 10 cc in the Hudson balloon. The patient was then taken out of dorsolithotomy position and was transferred to the ICU bed and was moved to the ICU. She remained in guarded condition. Grafts/Implants Used: 6 x 24 JJ stent Complications None
[2022-03-17] MEDS: 0.9% Normal Saline 1,000 ML 150 ML IV (19:43)
[2022-03-17] MEDS: BRIMONIDINE 0.2% 5ML BOTTLE 1 DRP RIGHT EYE (22:35)
[2022-03-18] VITALS (25 sets, daily range): BP systolic 67–135; BP diastolic 42–78; PULSE 68–84; RESP 15–24; TEMP 36.2–36.6; O2SAT 93–98
[2022-03-18] MEDS: 0.9% Normal Saline 1,000 ML 150 ML IV (02:24)
[2022-03-18 03:14] LABS: Absolute Lymphocyte Count 0.53 X10^3/uL (0.83-4.51); Absolute Neutrophil Count 10.5 X10^3/uL (2.0-7.7); Basophil# 0.07 X10^3/uL; Basophil% 0.6 % (0-1); Hematocrit 29.9 % (37-47); Hemoglobin 9.8 g/dL (12.0-15.0); Lymphocyte # 0.53 X10^3/ul (0.83-4.51); Lymphocyte % 4.6 % (19-41); Mean Corp Hgb Conc 32.8 g/dL (32-36); Mean Corpuscular Hgb 29.3 pg (27.0-32.0); Mean Corpuscular Volume 89.5 fL (81-99); Mean Platelet Vol. 12.8 fl (6.2-12.0); Monocyte# 0.37 X10^3/uL; Monocyte% 3.2 % (0-10); NRBC Flagged by Analyzer 0.2 % (0-5); Neutrophil # 10.47 X10^3/uL (2.7-7.7); Neutrophil % 90.1 % (47-70); POSITIVE COUNT YES; POSITIVE DIFFERENTIAL YES; POSITIVE MORPHOLOGY YES; Platelet Count 66 K/mm3 (150-450); RBC Distribution Width CV 14.5 % (11.6-14.6); RBC Distribution Width SD 46.9 fl (35.1-43.9); Red Blood Count 3.34 M/mm3 (4.2-5.4); White Blood Count 11.6 K/mm3 (4.4-11.0)
[2022-03-18 03:16] LABS: Differential Indicated SCAN CRITERIA MET
[2022-03-18 04:02] LABS: ALB/GLOB Ratio 0.5 RATIO (0.9-2.4); AST(SGOT) 42 U/L (15-37); Alanine Aminotransfer ALT/SGPT 37 U/L (13-56); Albumin, Serum 1.7 g/dL (3.2-5.0); Alkaline Phosphatase 123 U/L (45-117); Anion Gap 11 (5-15); BUN 49 mg/dL (7-18); BUN/Creat Ratio 26.9 RATIO (10-20); Chloride 110 mmol/L (98-107); Creatinine, Serum 1.82 mg/dL (0.55-1.02); EST Glomerular Filtration Rate 29 mL/min (>60); Est Glom Filt Rate - Afr Amer 35 mL/min (>60); Estimated Creatinine Clearance 20.47 ml/min; Globulin 3.4 g/dL (2.2-4.2); Glucose 127 mg/dL (74-106); Potassium 3.7 mmol/L (3.5-5.1); Protein, Total 5.1 g/dL (6.4-8.2); Sodium Level 137 mmol/L (136-145)
[2022-03-18 04:03] LABS: Differential Comment SCANNED
[2022-03-18 04:10] LABS: Platelet Estimate MOD DEC (ADEQ)
[2022-03-18 06:17] LABS: Magnesium 2.4 mg/dL (1.6-2.6); Phosphorus 3.4 mg/dL (2.5-4.9)
--- NOTE | 2022-03-18 06:49 | CON.PCM.CC_ITS ---
Assessment & Plan Assessment/Plan (1) Sepsis: (2) Hydronephrosis: (3) Acute renal injury due to sepsis: (4) Atrial fibrillation with rapid ventricular response: PLAN: Plan RECOMMENDATIONS: 1. Decrease IV fluids 2. Continue antibiotics 3. Discontinue arterial line if okay with surgery 4. Encourage incentive spirometer and out of bed as tolerated 5. Possible transfer out of the intensive care unit later today pending clinical response IMPRESSIONS: 1. Sepsis secondary to hydronephrosis secondary to nephrolithiasis status post stent POD #1 Clinical suspicion for E. coli sepsis secondary to hydronephrosis. Maria Esther ent has had a urethral stent placed with good response. Patient did have transient hypotension with evidence of endorgan damage by acute kidney injury. Blood cultures have been positive. Given patient's hypotension, anticipate antibiotics are appropriate at this time. Will await sensitivities and specificities. Will decrease IV fluids as patient is at risk for diastolic CHF complications and is currently normotensive. Antihypertensives have appropriately been held. The patient continues to improve, possibly transfer out of the intensive care unit later today. 2. Acute kidney injury Baseline creatinine appears to be around 0.8, but presented with a creati nine of 2.4. Patient likely has multifactorial etiology including sepsis and decreased perfusion in the setting of an JESS inhibitor. Lisinopril has been held. Patient is normotensive at this time. Continue to monitor, but no indication for renal replacement therapy at this time. 3. Thrombocytopenia Unclear etiology. Patient is not receiving heparin products. Some concern for delusional and sepsis related decrease. Clumping would also be a consideration. 4 T score is not indicated this patient has not received heparin products per review of the medical electronic chart. 4. Afib with RVR Clinical suspicion for an element of diastolic dysfunction given patient's age. Echocardiogram has been ordered. Patient is doing well with amiodarone and was able to go to normal sinus rhythm. Cardiology is following. 5. COPD/hypertension/hypomagnesemia/hyperlipidemia/advanced age Complicates care, management, recovery and prognosis. Low clinical suspicion for exacerbation of COPD at this time. As needed bronchodilators should be more than sufficient. Lisinopril has been held. Await normal renal function prior to reinitiation. Electrolyte abnormalities likely secondary to nausea and vomiting. Repletion was successful. HPI Consult Data Date of Consult: 03/18/22 HPI Narrative Reason for Consultation: Sepsis HPI Narrative: MAVYS LARRY is a 76 F, with past medical history listed below, who presents to [facility] on 03/17/2022 secondary to nausea, vomiting and flank pain. Patient reported acute onset on Wednesday, 4 days prior to presentation, with progressive worsening. Patient had reported right flank cramping and an inability to keep down food or liquids. Patient denied any hematemesis, melena or hematochezia. Patient did not had any dysuria, frequency, urgency or hematuria. Patient does carry diagnosis of COPD, but was not reporting any respiratory complaints at that time. In the ER, patient was initially afebrile, but had lower blood pressures of 93/73. Patient was saturating well on room air and normal sinus rhythm. However, patient then developed A. fib with RVR with a heart rate in the 150s. Patient was given IV fluids and Zofran. Laboratory work-up showed a leukocytosis of 18, hemoglobin of 12.2 and a platelet count of 170. Chemistry showed an elevated BUN and creatinine of 56/2.4 (baseline normal less than 1) and a slightly elevated glucose of 129. Urinalysis was suggestive of UTI. Patient subsequently had an abdominal CT showing an 8 mm obstructing stone in th e left ureteropelvic junction with moderate hydronephrosis and perinephric edema. Patient was given antibiotics and Cardizem. Patient subsequently had some hypotension. Urology was contacted and patient was sent for ureteral stent. Given concerns for hemodynamic instability, hospitalist contacted me and we agreed to place the patient in the intensive care unit. Cardiology was consulted and patient was placed on an amiodarone drip. Since being in the intensive care unit, patient has done okay. Patient has received significant fluid resuscitation, but no pressors have been required. Patient has been on 1 L nasal cannula with sleep, but is currently on room air. Patient states that she feels fatigued and tired, but is no longer having nausea or vomiting. Patient has not had any significant hematuria. Patient believes her pain is somewhat improved compared to previous. Patient does carry a diagnosis of COPD following a [id number] smoking history, but does not use any bronchodilators at baseline. Patient denies any recent hospitalization secondary to respiratory status. Patient does have a previous history of kidney stones. Patient states she has been compliant with her home medications including lisinopril. Patient lives independently with her and is able to complete all her ADLs. Review of systems otherwise negative from a constitutional, HEENT, respiratory, cardiovascular, GI, genitourinary, musculoskeletal, skin, neurologic, psychiatric and hematologic system unless stated above. [facility] Medical History COPD (chronic obstructive pulmonary disease) Diverticulosis GERD (gastroesophageal reflux disease) History of nephrolithiasis Hydronephrosis Hypertension Home Medications lactobacillus combination no.4 3 billion cell capsule (Probiotic) 1 ea PO DAILY SUPPLEMENT 03/10/17 [History Last Taken 03/14/22] lisinopril 10 mg tablet 1 tab PO DAILY 03/10/17 [History Last Taken 03/14/22] simvastatin 40 mg tablet 40 mg PO QHS 03/10/17 [History Last Taken 03/14/22] timolol maleate 0.5 % eye drops 1 drp BID 03/10/17 [History Last Taken 03/17/22] brimonidine 0.2 % eye drops 1 drp EACH EYE BID GLUACOMA 03/17/22 [History Last Taken 03/17/22] cholecalciferol (vitamin D3) 25 mcg (1,000 unit) tablet 25 mcg PO DAILY SUPPLEMENT 03/17/22 [History Last Taken 03/14/22] magnesium oxide 400 mg PO DAILY 03/17/22 [History Last Taken 03/14/22] omega-3 fatty acids-vitamin E 1,000 mg capsule 1 cap PO DAILY SUPPLEMENT 03/17/22 [History Last Taken 03/14/22] Allergy/AdvReac Type Severity Reaction Status Date / Time No Known Allergies Allergy Verified 03/17/22 08:19 Family History Mother Heart disease Father Cancer liver cancer Surgical History History of herniorrhaphy Hx of hysterectomy Social History household members: spouse and family Smoking Status: Former smoker alcohol intake: never substance use type: does not use ROS ROS Narrative See HPI Physical Exam Const oriented x3 General Appearance: cooperative; Negative for in distress or patient mechanically ventilated Orientation / Consciousness: awake HEENT normocephalic, head/scalp atraumatic, external ears normal and external nose normal Throat: posterior oropharynx normal Eyes PERRL, EOMs intact bilaterally and no scleral icterus General Eye: normal appearance of both eyes Neck supple and no JVD General: trachea midline Chest inspection of chest normal Chest: symmetrical chest wall rise; Negative for crepitus Resp normal respiratory effort Effort and Inspection: symmetric chest movement Auscultation: clear to auscultation bilaterally; Negative for rales, rhonchi or wheezes Cardio regular rate, regular rhythm, S1 normal heart sound, S2 normal heart sound, no murmurs, no rub and no gallops Cardio Narrative: Normal sinus rhythm noted on telemetry GI normal to inspection, nondistended, normoactive bowel sounds Palpation: soft; Negative for guarding or ascites Extremity no clubbing, cyanosis or edema Skin no rashes or lesions noted Neuro oriented x3, CN's II-XII intact bilaterally, moves all extremities and no focal motor deficits Psych cooperative Appearance: well kempt Lab / Micro Data Result Diagrams: 03/18/22 02:50 03/18/22 02:50 Labs: Laboratory Results - last 24 hr 03/17/22 08:32: WBC 18.0 H, RBC 4.16 L, Hgb 12.2, Hct 36.2 L, MCV 87.0, MCH 29.3, MCHC 33.7, RDW Std Deviation 45.0 H, RDW Coeff of Isaiah 14.0, Plt Count 170, MPV 11.5, Neut % (Auto) Not Reportable, Absolute Neuts (auto) 15.8 H, Absolute Lymphs (auto) 0.90, Total Counted 100, Neutrophils % (Manual) 70, Band Neutrophils % 18 H, Lymphocytes % (Manual) 5 L, Monocytes % (Manual) 7, Diff Path Review January, Platelet Estimate ADEQUATE, RBC Morphology NORM C+C 03/17/22 08:32: Sodium 135 L, Potassium 3.8, Chloride 100, Carbon Dioxide 23.0, Anion Gap 12, BUN 56 H, Creatinine 2.41 H, Estim Creat Clear Calc 15.46, Est GFR (MDRD) Af Amer 25 L, Est GFR (MDRD) Non-Af 21 L, BUN/Creatinine Ratio 23.2 H, Glucose 129 H, Calcium 8.7 03/17/22 08:32: Total Bilirubin 1.00, Direct Bilirubin 0.34 H, AST 43 H, ALT 29, Alkaline Phosphatase 115, Total Protein 6.8, Albumin 2.5 L, Globulin 4.3 H, Lipase 41 L 03/17/22 08:32: Magnesium 1.8 03/17/22 08:32: TSH 1.25 03/17/22 11:54: Urine Color Yellow, Urine Clarity Sl. Cloudy, Urine pH 6.0, Ur Specific [place] 1.020, Urine Protein 100 H, Urine Glucose (UA) Normal, Urine Ketones Negative, Urine Occult Blood 250 H, Urine Nitrite Negative, Urine Bilirubin Negative, Urine Urobilinogen Normal, Ur Leukocyte Esterase 500 H, Urine RBC 25-50 SEEN, Urine WBC 25-50 SEEN, Ur Squamous Epith Cells 0-5 SEEN, Urine Bacteria 3+, Fine Granular Casts 0-5 SEEN, Urine Mucus 0 SEEN 03/17/22 17:22: POC Glucose 77 03/18/22 02:50: WBC 11.6 H, RBC 3.34 L, Hgb 9.8 L, Hct 29.9 L, MCV 89.5, MCH 29.3, MCHC 32.8, RDW Std Deviation 46.9 H, RDW Coeff of Isaiah 14.5, Plt Count 66 L , MPV 12.8 H, Immature Gran % (Auto) 1.500 H, Neut % (Auto) 90.1 H, Lymph % (Auto) 4.6 L, [place] % (Auto) 3.2, Eos % (Auto) 0.0, Baso % (Auto) 0.6, Absolute Neuts (auto) 10.5 H, Absolute Lymphs (auto) 0.53 L, Nucleated RBC % 0.2, Differential Comment SCANNED, Platelet Estimate MOD 03/18/22 02:50: Sodium 137, Potassium 3.7, Chloride 110 H, Carbon Dioxide 16.0 L , Anion Gap 11, BUN 49 H, Creatinine 1.82 H, Estim Creat Clear Calc 20.47, Est GFR (MDRD) Af Amer 35 L, Est GFR (MDRD) Non-Af 29 L, BUN/Creatinine Ratio 26.9 H , Glucose 127 H, Calcium 7.0 L, Total Bilirubin 0.60, AST 42 H, ALT 37, Alkaline Phosphatase 123 H, Total Protein 5.1 L, Albumin 1.7 L, Globulin 3.4, Albumin/Globulin Ratio 0.5 L 03/18/22 02:50: Phosphorus 3.4, Magnesium 2.4 Micro: Microbiology 03/17/22 12:01 Blood Culture (Wb) - Anticubital Left Blood Culture - Preliminary 03/17/22 11:56 Blood Culture (Wb) - Right Hand Blood Culture - Preliminary 03/17/22 17:15 Nasal Secretion SARS-CoV-2 Antigen (Rapid) - Final Rhythm Strip Rhythm Strip: A-fib Radiology Impression Abdomen/Pelvis CT 03/17/22 08:45 IMPRESSION: 8 mm obstructing stone at the left ureteropelvic junction with moderate hydronephrosis and perinephric edema. Electronically Signed: Calvin Perez MD at 9:28 EDT , Charges/Coding Visit Charges Inpatient E&M: 36967 Init Hosp L3
--- NOTE | 2022-03-18 07:26 | PN.HOSP_ITS ---
Subjective Subjective Follow-up on sepsis/acute complicated UTI/newly diagnosed A. fib with RVR: Patient was seen and examined. She underwent enteroscopy with left ureteral stent placement. Intra-op procedure, urine was found to be purulent and malodorous. She had an arterial line placed. Overnight, her blood pressures were relatively stable. She did not need pressors. She is currently on 1 L of oxygen. Objective Data Objective Data Vital Signs: Vital Signs Temp Pulse Resp BP Pulse Ox 98 F 74 24 H 106/76 97 03/18/22 04:00 03/18/22 06:00 03/18/22 06:00 03/18/22 06:00 03/18/22 06:00 Oxygen Flow Rate (L/min) 1 Oxygen Delivery Method Room Air Weight: 67.993 kg Body Mass Index (BMI) 26.0 Intake & Output: Intake and Output for Last 24 Hours 03/16/22 03/17/22 03/18/22 23:59 23:59 23:59 Intake Total 3743.14 / 3743.14 1861.5 / 1861.5 Output Total 175 / 175 Balance 3743.14 / 3668.14 1686.5 / 1686.5 Lab / Micro Data Result Diagrams: 03/18/22 02:50 03/18/22 02:50 Labs: Laboratory Results - last 24 hr 03/17/22 08:32: WBC 18.0 H, RBC 4.16 L, Hgb 12.2, Hct 36.2 L, MCV 87.0, MCH 29.3, MCHC 33.7, RDW Std Deviation 45.0 H, RDW Coeff of Isaiah 14.0, Plt Count 170, MPV 11.5, Neut % (Auto) Not Reportable, Absolute Neuts (auto) 15.8 H, Absolute Lymphs (auto) 0.90, Total Counted 100, Neutrophils % (Manual) 70, Band Neutrophils % 18 H, Lymphocytes % (Manual) 5 L, Monocytes % (Manual) 7, Diff Path Review January, Platelet Estimate ADEQUATE, RBC Morphology NORM C+C 03/17/22 08:32: Sodium 135 L, Potassium 3.8, Chloride 100, Carbon Dioxide 23.0, Anion Gap 12, BUN 56 H, Creatinine 2.41 H, Estim Creat Clear Calc 15.46, Est GFR (MDRD) Af Amer 25 L, Est GFR (MDRD) Non-Af 21 L, BUN/Creatinine Ratio 23.2 H, Glucose 129 H, Calcium 8.7 03/17/22 08:32: Total Bilirubin 1.00, Direct Bilirubin 0.34 H, AST 43 H, ALT 29, Alkaline Phosphatase 115, Total Protein 6.8, Albumin 2.5 L, Globulin 4.3 H, Lipase 41 L 03/17/22 08:32: Magnesium 1.8 03/17/22 08:32: TSH 1.25 03/17/22 11:54: Urine Color Yellow, Urine Clarity Sl. Cloudy, Urine pH 6.0, Ur Specific [place] 1.020, Urine Protein 100 H, Urine Glucose (UA) Normal, Urine Ketones Negative, Urine Occult Blood 250 H, Urine Nitrite Negative, Urine Bilirubin Negative, Urine Urobilinogen Normal, Ur Leukocyte Esterase 500 H, Urine RBC 25-50 SEEN, Urine WBC 25-50 SEEN, Ur Squamous Epith Cells 0-5 SEEN, Urine Bacteria 3+, Fine Granular Casts 0-5 SEEN, Urine Mucus 0 SEEN 03/17/22 17:22: POC Glucose 77 03/18/22 02:50: WBC 11.6 H, RBC 3.34 L, Hgb 9.8 L, Hct 29.9 L, MCV 89.5, MCH 29.3, MCHC 32.8, RDW Std Deviation 46.9 H, RDW Coeff of Isaiah 14.5, Plt Count 66 L , MPV 12.8 H, Immature Gran % (Auto) 1.500 H, Neut % (Auto) 90.1 H, Lymph % (Auto) 4.6 L, [place] % (Auto) 3.2, Eos % (Auto) 0.0, Baso % (Auto) 0.6, Absolute Neuts (auto) 10.5 H, Absolute Lymphs (auto) 0.53 L, Nucleated RBC % 0.2, Differential Comment SCANNED, Platelet Estimate MOD 03/18/22 02:50: Sodium 137, Potassium 3.7, Chloride 110 H, Carbon Dioxide 16.0 L , Anion Gap 11, BUN 49 H, Creatinine 1.82 H, Estim Creat Clear Calc 20.47, Est GFR (MDRD) Af Amer 35 L, Est GFR (MDRD) Non-Af 29 L, BUN/Creatinine Ratio 26.9 H , Glucose 127 H, Calcium 7.0 L, Total Bilirubin 0.60, AST 42 H, ALT 37, Alkaline Phosphatase 123 H, Total Protein 5.1 L, Albumin 1.7 L, Globulin 3.4, Albumin/Globulin Ratio 0.5 L 03/18/22 02:50: Phosphorus 3.4, Magnesium 2.4 Micro: Microbiology 03/17/22 12:01 Blood Culture (Wb) - Anticubital Left Blood Culture - Preliminary 03/17/22 11:56 Blood Culture (Wb) - Right Hand Blood Culture - Preliminary 03/17/22 17:15 Nasal Secretion SARS-CoV-2 Antigen (Rapid) - Final Radiography Diagnostic Testing: Radiology Impression Abdomen/Pelvis CT 03/17/22 08:45 IMPRESSION: 8 mm obstructing stone at the left ureteropelvic junction with moderate hydronephrosis and perinephric edema. Electronically Signed: Calvin Perez MD at 9:28 EDT , Rhythm Strip Rhythm Strip: A-fib Physical Exam Narrative Physical exam: General: Alert, Oriented x3, cooperative, appears unwell HEENT: Atraumatic Oral: Very dry mucosa, coated, furred tongue Neck: Supple Lungs: Diminished to auscultation Cardiovascular: HS I+II, irregular,tachycardic, holosystolic murmur 3/6 Abdomen: Bowel Sounds Present, Soft, Non Tender Extremities: No edema Skin: No rashes, No breakdown Neurological: Grossly intact Psych/Mental Status: Appropriate Assessment & Plan Assessment/Plan (1) Sepsis: (2) Calculus of proximal left ureter: (3) Atrial fibrillation with rapid ventricular response: PLAN: Plan 1. Sepsis secondary to acute infected kidney stone/Acute complicated UTI, improving Blood and urine cultures are pending Status post uteroscopy/ureteral stent placement Continue on IV Zosyn 2. A. fib with RVR secondary to current sepsis, resolved, now in NSR(been in NSR for hours) Patient with no previous history of A. fib. TSH 1.25 Will DC amiodarone, will continue on telemetry 3. PRADEEP, likely post-renal secondary to 8 mm kidney stone, improving Patient has hydronephrosis on CT of the abdomen and pelvis Previous creatinine was less than 1, admitting creatinine was 2.41 Now Cr 1.82 Will continue to monitor 4. Thrombocytopenia, new, platelet count 66, likely secondary to sepsis/IV antibiotics IV fluids We will hold off on starting heparin for DVT prophylaxis Trend labs in a.m. 5. Hypertension, patient was hypotensive yesterday but BP improved on IV fluids Continue to hold off on lisinopril in the light of PRADEEP Will on decreased IV fluids and monitor 6. Hyponatremia, hypovolemic due to dehydration, resolved 7. Hypomagnesemia, replaced, 8. Hyperlipidemia, continue statin 9. DVT PPx-SCDs Charges/Coding Visit Charges Inpatient E&M: 64120 Subs Hosp L2
--- NOTE | 2022-03-18 09:46 | CASEMGMT ---
RN CM HARD CANDY BATCH MIXER CM to room to meet with patient for initial transition planning/care coordination assessment. DANIELLE KAYE introduced self and role at [facility].? Pt voices understanding and consents to assessment at this time.? Pt sitting up in chair in room in no distress at this time.?Olivia Abdul @ bedside. Pt agreeable to her being present during assessment. Pt is A/O at this time and answers all questions appropriately.?? Care providers, pharmacy, and demographics verified/updated at this time. PCP: Dr Rosario Specialists: None Preferred Pharmacy: [facility] Retail Insurance: [employer] Prescription Benefit:?Yes Living Will/HPOA:? Pt does not currently have LW/HCPOA and interested in more information. She would like to complete these, but would like her to present when she does. SWJulianna, made aware. Pt made aware, if SW unable to meet w/her and her while @ [facility], AD can be completed as an OP. Pt provided w/[employer] card LNOK: , Emigdio. DtrOlivia Living Arrangements: Lives w/her in one-story home w/basement. One step to enter. Pt does okay w/stairs. Independent w/ADL's. and pt share home mgmt tasks. Transportation:?Pt able to drive, but she prefers not to. does most of the driving. DME: ? Denies using any DME and denies needs.? HHC/SNF: No hx of either. Dtr states they go for a walk every Wednesday and pt usually able to walk 2 miles @ her baseline. PT/OT evals pending and CM will follow, but do not anticipate any discharge needs at this time. Pt wishes to return home and states has no concerns with going home at time of discharge.? CM to follow for any further discharge planning/needs.? Pt and dtr voice no further concerns/needs at this time.? Advised them to ask for CM if any further questions/concerns/needs arise.? They voice understanding. PLAN:??Home w/family support and discharge plans in place. Malvin SHEETS RN, CM
[2022-03-18] MEDS: BRIMONIDINE 0.2% 5ML BOTTLE 1 DRP RIGHT EYE ×2 (10:11→21:20)
[2022-03-18] MEDS: NYSTATIN 500,000 UNIT/5 ML UDC 500000 UNIT PO ×3 (10:11→21:20)
[2022-03-18 12:47] LABS: Pathologist Review Reviewed
--- NOTE | 2022-03-18 16:54 | PN.URO_ITS ---
Subjective Subjective Sitting up in chair, eating yogurt, talking and comfortable!! Objective Data Objective Data Vital Signs: Vital Signs Temp Pulse Resp BP Pulse Ox 97.6 F L 69 19 H 97/61 98 03/18/22 12:00 03/18/22 12:00 03/18/22 12:00 03/18/22 12:00 03/18/22 12:00 Oxygen Flow Rate (L/min) 1 Oxygen Delivery Method Room Air Weight: 67.993 kg Body Mass Index (BMI) 26.0 Intake & Output: Intake and Output for Last 24 Hours 03/16/22 03/17/22 03/18/22 23:59 23:59 23:59 Intake Total 3743.14 / 3743.14 2449.57 / 2449.57 Output Total 300 / 300 Balance 3743.14 / 3668.14 2149.57 / 2149.57 Lab / Micro Data Result Diagrams: 03/18/22 02:50 03/18/22 02:50 Labs: Laboratory Results - last 24 hr 03/17/22 08:32: Diff Path Review Reviewed 03/17/22 17:22: POC Glucose 77 03/18/22 02:50: WBC 11.6 H, RBC 3.34 L, Hgb 9.8 L, Hct 29.9 L, MCV 89.5, MCH 29.3, MCHC 32.8, RDW Std Deviation 46.9 H, RDW Coeff of Isaiah 14.5, Plt Count 66 L , MPV 12.8 H, Immature Gran % (Auto) 1.500 H, Neut % (Auto) 90.1 H, Lymph % (Auto) 4.6 L, [place] % (Auto) 3.2, Eos % (Auto) 0.0, Baso % (Auto) 0.6, Absolute Neuts (auto) 10.5 H, Absolute Lymphs (auto) 0.53 L, Nucleated RBC % 0.2, Differential Comment SCANNED, Platelet Estimate MOD DEC 03/18/22 02:50: Sodium 137, Potassium 3.7, Chloride 110 H, Carbon Dioxide 16.0 L , Anion Gap 11, BUN 49 H, Creatinine 1.82 H, Estim Creat Clear Calc 20.47, Est GFR (MDRD) Af Amer 35 L, Est GFR (MDRD) Non-Af 29 L, BUN/Creatinine Ratio 26.9 H , Glucose 127 H, Calcium 7.0 L, Total Bilirubin 0.60, AST 42 H, ALT 37, Alkaline Phosphatase 123 H, Total Protein 5.1 L, Albumin 1.7 L, Globulin 3.4, Albumin/Globulin Ratio 0.5 L 03/18/22 02:50: Phosphorus 3.4, Magnesium 2.4 Micro: Microbiology 03/17/22 Unknown Urine, Clean Catch Urine Culture - Preliminary GNR lactose medical communication specialist 03/17/22 11:56 Blood Culture (Wb) - Right Hand Blood Culture - Preliminary GNR lactose medical communication specialist 03/17/22 12:01 Blood Culture (Wb) - Anticubital Left Blood Culture - Preliminary GNR lactose medical communication specialist 03/17/22 17:15 Nasal Secretion SARS-CoV-2 Antigen (Rapid) - Final Radiography Diagnostic Testing: Radiology Impression Echocardiogram 03/17/22 15:18 Interpretation Summary The study was technically difficult. Contrast injection was performed. Left ventricular systolic function is normal. The estimated ejection fraction is 65 %. The left atrium is mildly enlarged. The right atrium is mildly enlarged. Mild focal mitral valve calcification of the anterior leaflet. Mitral valve doming/Hockey Sticking Moderate (2+) eccentric mitral valve insufficiency. Moderate (2+) tricuspid valve insufficiency. Mild diffuse aortic valve thickening. Mild focal aortic valve calcification. Right ventricular systolic pressure estimated to be 38 mmHg. Transmitral diastolic flow velocities suggest diastolic dysfunction (pseudonormal pattern). _ Ordering Physician: Maliha Webster Referring Physician: MD Marlene Sung Performed By: Cas Brown RCS Rhythm Strip Rhythm Strip: A-fib Physical Exam Const alert, oriented x3 and no apparent distress General Appearance: cooperative and comfortable HEENT normocephalic and head/scalp atraumatic Nose: external nose normal External Ear: external ears normal Teeth and Gingiva: dentures Eyes General Eye: normal appearance of both eyes Chest inspection of chest normal Chest: symmetrical chest wall rise Resp normal respiratory effort, normal air movement, no retractions and no use of accessory muscles Effort and Inspection: able to speak in complete sentences and symmetric chest movement Cardio regular rate Narrative: delgado with little concentrated urine in the tubing. Extremity Extremity Narrative: SCD's in place Psych mental status grossly normal, thought process normal and cooperative Assessment & Plan Assessment/Plan (1) Hydronephrosis: (2) Acute renal injury due to sepsis: (3) Sepsis: (4) Calculus of proximal left ureter: PLAN: Plan continue supportive care continue antibiotics ok to remove delgado when no longer medically necessary will need out patient follow up for stone management and eventual stent removal headed to general medical floor
--- NOTE | 2022-03-18 20:47 | PN.CARD_ITS ---
Subjective Subjective The patient is now status post her urologic surgical evaluation and care/procedure. She appears to be resting comfortably. Objective Data Vital Signs: Vital Signs Temp Pulse Resp BP Pulse Ox 97.3 F L 80 16 124/62 H 95 03/18/22 18:00 03/18/22 19:00 03/18/22 18:00 03/18/22 18:00 03/18/22 18:00 Oxygen Flow Rate (L/min) 1 Oxygen Delivery Method Room Air Weight: 149 lb 14.382 oz Body Mass Index (BMI) 26.0 Intake & Output: Intake and Output for Last 24 Hours 03/16/22 03/17/22 03/18/22 23:59 23:59 23:59 Intake Total 3743.14 / 3743.14 2689.57 / 2689.57 Output Total 450 / 450 Balance 3743.14 / 3668.14 2239.57 / 2239.57 Lab / Micro Data Result Diagrams: 03/18/22 02:50 03/18/22 02:50 Labs: Laboratory Results - last 24 hr 03/17/22 08:32: Diff Path Review Reviewed 03/18/22 02:50: WBC 11.6 H, RBC 3.34 L, Hgb 9.8 L, Hct 29.9 L, MCV 89.5, MCH 29.3, MCHC 32.8, RDW Std Deviation 46.9 H, RDW Coeff of Isaiah 14.5, Plt Count 66 L , MPV 12.8 H, Immature Gran % (Auto) 1.500 H, Neut % (Auto) 90.1 H, Lymph % (Auto) 4.6 L, [place] % (Auto) 3.2, Eos % (Auto) 0.0, Baso % (Auto) 0.6, Absolute Neuts (auto) 10.5 H, Absolute Lymphs (auto) 0.53 L, Nucleated RBC % 0.2, Differential Comment SCANNED, Platelet Estimate MOD DEC 03/18/22 02:50: Sodium 137, Potassium 3.7, Chloride 110 H, Carbon Dioxide 16.0 L , Anion Gap 11, BUN 49 H, Creatinine 1.82 H, Estim Creat Clear Calc 20.47, Est GFR (MDRD) Af Amer 35 L, Est GFR (MDRD) Non-Af 29 L, BUN/Creatinine Ratio 26.9 H , Glucose 127 H, Calcium 7.0 L, Total Bilirubin 0.60, AST 42 H, ALT 37, Alkaline Phosphatase 123 H, Total Protein 5.1 L, Albumin 1.7 L, Globulin 3.4, Albumin/Globulin Ratio 0.5 L 03/18/22 02:50: Phosphorus 3.4, Magnesium 2.4 Micro: Microbiology 03/17/22 Unknown Urine, Clean Catch Urine Culture - Preliminary GNR lactose microfilming document preparer 03/17/22 11:56 Blood Culture (Wb) - Right Hand Blood Culture - Preliminary GNR lactose microfilming document preparer 03/17/22 12:01 Blood Culture (Wb) - Anticubital Left Blood Culture - Preliminary GNR lactose microfilming document preparer 03/17/22 17:15 Nasal Secretion SARS-CoV-2 Antigen (Rapid) - Final Rhythm Strip Rhythm Strip: Sinus Rhythm Cardiology Labs/Tests 03/18/22 02:50: WBC 11.6 H, RBC 3.34 L, Hgb 9.8 L, Hct 29.9 L, MCV 89.5, MCH 29.3, MCHC 32.8, Plt Count 66 L, MPV 12.8 H, Immature Gran % (Auto) 1.500 H, Neut % (Auto) 90.1 H, Lymph % (Auto) 4.6 L, [place] % (Auto) 3.2, Eos % (Auto) 0.0, Baso % (Auto) 0.6, Absolute Neuts (auto) 10.5 H, Nucleated RBC % 0.2 03/18/22 02:50: Sodium 137, Potassium 3.7, Chloride 110 H, Carbon Dioxide 16.0 L , Anion Gap 11, BUN 49 H, Creatinine 1.82 H, Est GFR (MDRD) Af Amer 35 L, Est GFR (MDRD) Non-Af 29 L, BUN/Creatinine Ratio 26.9 H, Glucose 127 H, Calcium 7.0 L, Total Bilirubin 0.60 03/18/22 02:50: Phosphorus 3.4, Magnesium 2.4 Rhythm: Sinus rhythm EKG: Sinus rhythm; nonspecific T wave abnormality ECHO: As noted below Radiography Diagnostic Testing: Radiology Impression Echocardiogram 03/17/22 15:18 Interpretation Summary The study was technically difficult. Contrast injection was performed. Left ventricular systolic function is normal. The estimated ejection fraction is 65 %. The left atrium is mildly enlarged. The right atrium is mildly enlarged. Mild focal mitral valve calcification of the anterior leaflet. Mitral valve doming/Hockey Sticking Moderate (2+) eccentric mitral valve insufficiency. Moderate (2+) tricuspid valve insufficiency. Mild diffuse aortic valve thickening. Mild focal aortic valve calcification. Right ventricular systolic pressure estimated to be 38 mmHg. Transmitral diastolic flow velocities suggest diastolic dysfunction (pseudonormal pattern). Ordering Physician: Maliha Webster Referring Physician: MD Marlene Sung Performed By: Cas Brown RCS Physical Exam Const alert, oriented x3 and no apparent distress General Appearance: cooperative and comfortable HEENT normocephalic and head/scalp atraumatic Nose: external nose normal External Ear: external ears normal Eyes General Eye: normal appearance of both eyes Chest inspection of chest normal Chest: symmetrical chest wall rise Resp normal respiratory effort and clear to auscultation bilaterally Effort and Inspection: symmetric chest movement Cardio regular rate, S1 normal heart sound and S2 normal heart sound GI normal to inspection, nondistended, normoactive bowel sounds Narrative: delgado with little concentrated urine in the tubing. Extremity no pedal edema Extremity Narrative: SCD's in place Skin no rashes or lesions noted Psych mental status grossly normal Assessment & Plan Assessment/Plan (1) Atrial fibrillation with rapid ventricular response: PLAN: The patient has had subsequent conversion to sinus rhythm. She is continuing to be monitored. She will continue rate control therapy as deemed appropriate. Her IV amiodarone has been discontinued. (2) Pyelonephritis: PLAN: The patient continues evaluation care per internal medicine and urology. (3) Calculus of proximal left ureter: PLAN: The patient has undergone her previously planned urologic procedure. Hopefully this will improve the patient's underlying urologic/infectious disease process. The patient will continue evaluation care per internal medicine and urology. (4) Sepsis: PLAN: The patient has continued medical management which includes IV fluids as deemed appropriate and IV antibiotics. (5) Acute renal insufficiency: PLAN: The patient's creatinine level has improved. Her renal function will continue to be followed by internal medicine and urology. (6) Hypertension: QUALIFIERS: Hypertension type: essential hypertension Qualified Code(s): I10 - Essential (primary) hypertension PLAN: The patient's blood pressure appears to have improved overall. Addt'l Comments At the present time the patient does appear to have demonstrated improvement with respect to her atrial dysrhythmia status post medical management and urologic surgical procedures. Her IV amiodarone has been discontinued. She is continuing evaluation care per internal medicine and urology. It does not appear she requires additional cardiovascular diagnostic studies/intervention at this time. Thank you for allowing me to participate in the care of your patient. Please don't hesitate to call if any issues arise. This note was generated using a voice recognition system and there may be incorrect words, spelling or punctuation that were not noted when reviewing the office note prior to saving. Procedure Criteria Type of Procedure Procedure Type: Elective Elective Risks - COVID COVID Risk Discussion: The surgeon/proceduralist and patient have discussed in detail the risk of exposure to and/or potential harm posed by the COVID-19 virus with having a surgery/procedure at this time versus the risk of delaying the surgery/procedure. It is not possible to know either the risk of delaying the surgery or procedure or chance of getting an infection with perfect accuracy, but a joint decision was made between the patient and the surgeon/proceduralist to proceed at this time with the scheduled surgery/procedure as indicated on the consent form.
[2022-03-18] MEDS: 0.9% Saline Lock 10 ML Syringe IV (21:21)
[2022-03-19] VITALS (11 sets, daily range): BP systolic 98–124; BP diastolic 68–85; PULSE 65–130; RESP 18; TEMP 36.3–36.7; O2SAT 96–98
[2022-03-19 07:18] LABS: Hematocrit 30.8 % (37-47); Hemoglobin 10.6 g/dL (12.0-15.0); Mean Corp Hgb Conc 34.4 g/dL (32-36); Mean Corpuscular Hgb 29.1 pg (27.0-32.0); Mean Corpuscular Volume 84.6 fL (81-99); Mean Platelet Vol. 13.1 fl (6.2-12.0); POSITIVE COUNT YES; POSITIVE MORPHOLOGY YES; RBC Distribution Width CV 14.4 % (11.6-14.6); RBC Distribution Width SD 44.4 fl (35.1-43.9); Red Blood Count 3.64 M/mm3 (4.2-5.4); White Blood Count 16.7 K/mm3 (4.4-11.0)
[2022-03-19 07:24] LABS: Differential Indicated MANUAL DIFF; Platelet Count 49 K/mm3 (150-450)
[2022-03-19 07:40] LABS: ALB/GLOB Ratio 0.5 RATIO (0.9-2.4); AST(SGOT) 20 U/L (15-37); Alanine Aminotransfer ALT/SGPT 37 U/L (13-56); Albumin, Serum 1.7 g/dL (3.2-5.0); Alkaline Phosphatase 141 U/L (45-117); Anion Gap 9 (5-15); BUN 59 mg/dL (7-18); BUN/Creat Ratio 34.7 RATIO (10-20); Calcium,Total 7.9 mg/dL (8.5-10.1); Chloride 114 mmol/L (98-107); EST Glomerular Filtration Rate 31 mL/min (>60); Est Glom Filt Rate - Afr Amer 37 mL/min (>60); Estimated Creatinine Clearance 21.92 ml/min; Globulin 3.7 g/dL (2.2-4.2); Glucose 137 mg/dL (74-106); Potassium 3.4 mmol/L (3.5-5.1); Protein, Total 5.4 g/dL (6.4-8.2); Sodium Level 141 mmol/L (136-145)
[2022-03-19 08:01] LABS: Lymphocyte 3 % (19-41); Metamyelocyte 10 % (0-1); Monocyte 1 % (0-10); Neutrophil-Band 2 % (0-5); Neutrophil-Segmented 84 % (47-70); Total Cells Counted 100 (MANUAL DIFF)
[2022-03-19 08:03] LABS: Absolute Neutrophil Count 14.2 X10^3/uL (2.0-7.7); Myelocyte 10 % (0-0); Platelet Estimate MKD DEC (ADEQ); Red Cell Morphology NORM C+C NORMAL (NORM C&C)
[2022-03-19 08:04] LABS: Absolute Lymphocyte Count 0.49 X10^3/uL (0.83-4.51); Lymphocyte # 0.49 X10^3/ul (0.83-4.51)
--- NOTE | 2022-03-19 09:39 | PN.CC_ITS ---
Assessment & Plan Assessment/Plan (1) Sepsis: (2) Hydronephrosis: (3) Acute renal injury due to sepsis: (4) Atrial fibrillation with rapid ventricular response: PLAN: Plan RECOMMENDATIONS: 1. Consider narrowing antibiotic spectrum 2. Consider 10 days of total antibiotics given bacteremia 3. Walking oximetry prior to discharge 4. Encourage incentive spirometer and out of bed as tolerated 5. Hemodynamically stable on room air. Will sign off from a pulmonary/critical care perspective IMPRESSIONS: 1. Sepsis secondary to E. coli secondary to hydronephrosis secondary to nephrolithiasis status post stent POD #2 Clinical suspicion for E. coli sepsis secondary to hydronephrosis. Patient has had a urethral stent placed with good response. Patient did have transient hypotension with evidence of endorgan damage by acute kidney injury. Blood cultures have been positive. Patient has remained hemodynamically stable. Urine culture is showing pansensitive E. coli. Likely okay to narrow antibiotic spectrum and treat for total of 10 days. 2. Acute kidney injury Improving. Baseline creatinine appears to be around 0.8, but presented with a creatinine of 2.4. Patient likely has multifactorial etiology including sepsis and decreased perfusion in the setting of an JESS inhibitor. Lisinopril has been held. Patient is normotensive at this time. Continue to monitor, but no indication for renal replacement therapy at this time. Continue to hold lisinopril until renal function normalizes 3. Thrombocytopenia Unclear etiology. Patient is not receiving heparin products. Some concern for delusional and sepsis related decrease. Clumping would also be a consideration. 4 T score is not indicated this patient has not received heparin products per review of the medical electronic chart. 4. Afib with RVR Resolved. Clinical suspicion for an element of diastolic dysfunction given patient's age. Echocardiogram has been ordered. Patient is doing well with amiodarone and was able to go to normal sinus rhythm. Cardiology is following. 5. COPD/hypertension/hypomagnesemia/hyperlipidemia/advanced age Complicates care, management, recovery and prognosis. Low clinical suspicion for exacerbation of COPD at this time. As needed bronchodilators should be more than sufficient. Lisinopril has been held. Await normal renal function prior to reinitiation. Electrolyte abnormalities likely secondary to nausea and vomiting. Repletion was successful. Subjective Subjective Patient did well overnight. No acute issues were reported by nursing. Patient feels that she is getting back to normal. Patient was transferred from the intensive care unit without issues. No supplemental oxygen or fluid boluses were required overnight. Patient believes her pain is improving. Objective Data Objective Data Vital Signs: Vital Signs Temp Pulse Resp BP Pulse Ox 36.5 C L 70 18 115/72 96 03/19/22 05:55 03/19/22 06:57 03/19/22 05:55 03/19/22 05:55 03/19/22 05:55 Oxygen Flow Rate (L/min) 1 Oxygen Delivery Method Room Air Weight: 67.8 kg Body Mass Index (BMI) 26.0 Intake & Output: Intake and Output for Last 24 Hours 03/17/22 03/18/22 03/19/22 23:59 23:59 23:59 Intake Total 3743.14 / 3743.14 2689.57 / 2689.57 50 / 50 Output Total 450 / 800 650 / 650 Balance 3743.14 / 3668.14 2239.57 / 1889.57 -600 / -600 Lab / Micro Data Attestation: I reviewed the patient's lab results. Result Diagrams: 03/19/22 06:39 03/19/22 06:39 Labs: Laboratory Results - last 24 hr 03/17/22 08:32: Diff Path Review Reviewed 03/19/22 06:39: WBC 16.7 H, RBC 3.64 L, Hgb 10.6 L, Hct 30.8 L, MCV 84.6 D, MCH 29.1, MCHC 34.4, RDW Std Deviation 44.4 H, RDW Coeff of Isaiah 14.4, Plt Count 49 L*, MPV 13.1 H, Neut % (Auto) Not Reportable, Absolute Neuts (auto) 14.2 H, Absolute Lymphs (auto) 0.49 L, Total Counted 100, Neutrophils % (Manual) 84 H, Band Neutrophils % 2, Lymphocytes % (Manual) 3 L, Monocytes % (Manual) 1, Metamyelocytes % 10 H, Myelocytes % 10 H, Diff Path Review May foll, Platelet Estimate MKD DEC, RBC Morphology NORM C+C 03/19/22 06:39: Sodium 141, Potassium 3.4 L, Chloride 114 H, Carbon Dioxide 18.0 L, Anion Gap 9, BUN 59 H, Creatinine 1.70 H, Estim Creat Clear Calc 21.92, Est GFR (MDRD) Af Amer 37 L, Est GFR (MDRD) Non-Af 31 L, BUN/Creatinine Ratio 34.7 H , Glucose 137 H, Calcium 7.9 L, Total Bilirubin 0.60, AST 20, ALT 37, Alkaline Phosphatase 141 H, Total Protein 5.4 L, Albumin 1.7 L, Globulin 3.7, Albumin/Globulin Ratio 0.5 L Micro: Microbiology 03/17/22 11:56 Blood Culture (Wb) - Right Hand Blood Culture - Final GNR lactose aircraft powertrain repairer 03/17/22 12:01 Blood Culture (Wb) - Anticubital Left Blood Culture - Final Escherichia coli 03/17/22 Unknown Urine, Clean Catch Urine Culture - Final Escherichia coli 03/17/22 17:15 Nasal Secretion SARS-CoV-2 Antigen (Rapid) - Final Radiography Diagnostic Testing: Radiology Impression Echocardiogram 03/17/22 15:18 Interpretation Summary The study was technically difficult. Contrast injection was performed. Left ventricular systolic function is normal. The estimated ejection fraction is 65 %. The left atrium is mildly enlarged. The right atrium is mildly enlarged. Mild focal mitral valve calcification of the anterior leaflet. Mitral valve doming/Hockey Sticking Moderate (2+) eccentric mitral valve insufficiency. Moderate (2+) tricuspid valve insufficiency. Mild diffuse aortic valve thickening. Mild focal aortic valve calcification. Right ventricular systolic pressure estimated to be 38 mmHg. Transmitral diastolic flow velocities suggest diastolic dysfunction (pseudonormal pattern). Ordering Physician: Maliha Webster Referring Physician: MD Marlene Sung Performed By: Cas Brown RCS Rhythm Strip Rhythm Strip: Sinus Rhythm Physical Exam Const oriented x3 General Appearance: cooperative; Negative for in distress or patient mechanically ventilated Orientation / Consciousness: awake HEENT normocephalic, head/scalp atraumatic, external ears normal and external nose normal Eyes PERRL, EOMs intact bilaterally and no scleral icterus General Eye: normal appearance of both eyes Neck supple and no JVD General: trachea midline Chest inspection of chest normal Chest: symmetrical chest wall rise; Negative for crepitus Resp normal respiratory effort Effort and Inspection: symmetric chest movement Auscultation: clear to auscultation bilaterally; Negative for rales, rhonchi or wheezes Cardio regular rate, regular rhythm, S1 normal heart sound, S2 normal heart sound, no murmurs, no rub and no gallops Cardio Narrative: Normal sinus rhythm noted on telemetry GI normal to inspection, nondistended, normoactive bowel sounds Palpation: soft; Negative for guarding or ascites Extremity no clubbing, cyanosis or edema Skin no rashes or lesions noted Neuro oriented x3, CN's II-XII intact bilaterally, moves all extremities and no focal motor deficits Psych cooperative Appearance: well ayla Charges/Coding Visit Charges Inpatient E&M: 93918 Subs Hosp L2
--- NOTE | 2022-03-19 10:10 | PN.URO_ITS ---
Subjective Subjective The patient is sitting up in chair at bedside eating breakfast. Daughter is present for the visit.She is having some hallucinations and the medicine team is working with her. Other than that, she is moving her bowels and having no other complaints. Delgado catheter still indwelling. Objective Data Objective Data Vital Signs: Vital Signs Temp Pulse Resp BP Pulse Ox 97.7 F L 70 18 115/72 96 03/19/22 05:55 03/19/22 06:57 03/19/22 05:55 03/19/22 05:55 03/19/22 05:55 Oxygen Flow Rate (L/min) 1 Oxygen Delivery Method Room Air Weight: 67.8 kg Body Mass Index (BMI) 26.0 Intake & Output: Intake and Output for Last 24 Hours 03/17/22 03/18/22 03/19/22 23:59 23:59 23:59 Intake Total 3743.14 / 3743.14 2689.57 / 2689.57 50 / 50 Output Total 450 / 800 650 / 650 Balance 3743.14 / 3668.14 2239.57 / 1889.57 -600 / -600 Lab / Micro Data Result Diagrams: 03/19/22 06:39 03/19/22 06:39 Labs: Laboratory Results - last 24 hr 03/17/22 08:32: Diff Path Review Reviewed 03/19/22 06:39: WBC 16.7 H, RBC 3.64 L, Hgb 10.6 L, Hct 30.8 L, MCV 84.6 D, MCH 29.1, MCHC 34.4, RDW Std Deviation 44.4 H, RDW Coeff of Isaiah 14.4, Plt Count 49 L*, MPV 13.1 H, Neut % (Auto) Not Reportable, Absolute Neuts (auto) 14.2 H, Absolute Lymphs (auto) 0.49 L, Total Counted 100, Neutrophils % (Manual) 84 H, Band Neutrophils % 2, Lymphocytes % (Manual) 3 L, Monocytes % (Manual) 1, Metamyelocytes % 10 H, Myelocytes % 10 H, Diff Path Review May , Platelet Estimate MKD DEC, RBC Morphology NORM C+C 03/19/22 06:39: Sodium 141, Potassium 3.4 L, Chloride 114 H, Carbon Dioxide 18.0 L, Anion Gap 9, BUN 59 H, Creatinine 1.70 H, Estim Creat Clear Calc 21.92, Est GFR (MDRD) Af Amer 37 L, Est GFR (MDRD) Non-Af 31 L, BUN/Creatinine Ratio 34.7 H , Glucose 137 H, Calcium 7.9 L, Total Bilirubin 0.60, AST 20, ALT 37, Alkaline Phosphatase 141 H, Total Protein 5.4 L, Albumin 1.7 L, Globulin 3.7, Albumin/Globulin Ratio 0.5 L Micro: Microbiology 03/17/22 11:56 Blood Culture (Wb) - Right Hand Blood Culture - Final GNR lactose packing line worker 03/17/22 12:01 Blood Culture (Wb) - Anticubital Left Blood Culture - Final Escherichia coli 03/17/22 Unknown Urine, Clean Catch Urine Culture - Final Escherichia coli 03/17/22 17:15 Nasal Secretion SARS-CoV-2 Antigen (Rapid) - Final Radiography Diagnostic Testing: Radiology Impression Echocardiogram 03/17/22 15:18 Interpretation Summary The study was technically difficult. Contrast injection was performed. Left ventricular systolic function is normal. The estimated ejection fraction is 65 %. The left atrium is mildly enlarged. The right atrium is mildly enlarged. Mild focal mitral valve calcification of the anterior leaflet. Mitral valve doming/Hockey Sticking Moderate (2+) eccentric mitral valve insufficiency. Moderate (2+) tricuspid valve insufficiency. Mild diffuse aortic valve thickening. Mild focal aortic valve calcification. Right ventricular systolic pressure estimated to be 38 mmHg. Transmitral diastolic flow velocities suggest diastolic dysfunction (pseudonormal pattern). Ordering Physician: Maliha Webster Referring Physician: MD Marlene Sung Performed By: Cas Brown RCS Rhythm Strip Rhythm Strip: Sinus Rhythm Physical Exam Const alert, oriented x3 and no apparent distress General Appearance: cooperative, comfortable and well kempt HEENT normocephalic, head/scalp atraumatic, hearing grossly normal bilaterally, external ears normal and external nose normal Head and Scalp: normocephalic and atraumatic Face and Sinus: normal facial exam Eyes General Eye: normal appearance of both eyes Neck supple General: trachea midline Chest inspection of chest normal Chest: symmetrical chest wall rise Resp normal respiratory effort, normal air movement and no retractions Effort and Inspection: able to speak in complete sentences Cardio regular rate GI Palpation: soft Narrative: delgado draining clear yellow urine Bladder / Kidney Exam: catheter in place Extremity General Extremity: normal exam except as noted Psych mental status grossly normal, thought process normal and cooperative Assessment & Plan Assessment/Plan (1) Hydronephrosis: (2) Sepsis: (3) Calculus of proximal left ureter: (4) Acute renal insufficiency: PLAN: Plan Continue antibiotic coverage for E. coli infection Okay for trial of void today Follow-up in the office in 1 to 2 weeks to make arrangements for surgical intervention for the stone We will plan for KUB that day
[2022-03-19] MEDS: BRIMONIDINE 0.2% 5ML BOTTLE 1 DRP RIGHT EYE ×2 (10:22→20:21)
[2022-03-19] MEDS: Omega-3 Acid Ethyl Esters 1 GM Capsule PO (10:22)
[2022-03-19] MEDS: Cholecalciferol (VIT D3) 25 MCG TABLET (1,000 UNITS) PO (10:22)
[2022-03-19] MEDS: Magnesium Chloride 64 MG Delay Rel.Tablet 128 MG PO (10:22)
[2022-03-19] MEDS: NYSTATIN 500,000 UNIT/5 ML UDC 500000 UNIT PO ×4 (10:22→20:21)
[2022-03-19] MEDS: 0.9% Saline Lock 10 ML Syringe IV (10:23)
--- NOTE | 2022-03-19 10:29 | CASEMGMT ---
SW went to patient's room. Introduced self and role at [facility]. Patient said her has not come in yet and she would like to wait until he is present. SHANNON told patient SW will stop back by. Jael LYON
--- NOTE | 2022-03-19 11:58 | PN.HOSP_ITS ---
Subjective Subjective Follow-up on sepsis/acute complicated UTI/newly diagnosed A. fib with RVR: Patient was seen and examined. Patient was said to be hallucinating and seeing cobwebs in her room, in front of her. She knows she is hallucinating. No other events overnight. 2D echo shows EF of 65%, mitral valve insufficiency +2. Objective Data Objective Data Vital Signs: Vital Signs Temp Pulse Resp BP Pulse Ox 97.7 F L 70 18 115/72 96 03/19/22 05:55 03/19/22 06:57 03/19/22 05:55 03/19/22 05:55 03/19/22 05:55 Oxygen Flow Rate (L/min) 1 Oxygen Delivery Method Room Air Weight: 67.8 kg Body Mass Index (BMI) 26.0 Intake & Output: Intake and Output for Last 24 Hours 03/17/22 03/18/22 03/19/22 23:59 23:59 23:59 Intake Total 3743.14 / 3743.14 2689.57 / 2689.57 50 / 50 Output Total 450 / 800 650 / 650 Balance 3743.14 / 3668.14 2239.57 / 1889.57 -600 / -600 Lab / Micro Data Result Diagrams: 03/19/22 06:39 03/19/22 06:39 Labs: Laboratory Results - last 24 hr 03/17/22 08:32: Diff Path Review Reviewed 03/19/22 06:39: WBC 16.7 H, RBC 3.64 L, Hgb 10.6 L, Hct 30.8 L, MCV 84.6 D, MCH 29.1, MCHC 34.4, RDW Std Deviation 44.4 H, RDW Coeff of Isaiah 14.4, Plt Count 49 L*, MPV 13.1 H, Neut % (Auto) Not Reportable, Absolute Neuts (auto) 14.2 H, Absolute Lymphs (auto) 0.49 L, Total Counted 100, Neutrophils % (Manual) 84 H, Band Neutrophils % 2, Lymphocytes % (Manual) 3 L, Monocytes % (Manual) 1, Metamyelocytes % 10 H, Myelocytes % 10 H, Diff Path Review May foll, Platelet Estimate MKD DEC, RBC Morphology NORM C+C 03/19/22 06:39: Sodium 141, Potassium 3.4 L, Chloride 114 H, Carbon Dioxide 18.0 L, Anion Gap 9, BUN 59 H, Creatinine 1.70 H, Estim Creat Clear Calc 21.92, Est GFR (MDRD) Af Amer 37 L, Est GFR (MDRD) Non-Af 31 L, BUN/Creatinine Ratio 34.7 H , Glucose 137 H, Calcium 7.9 L, Total Bilirubin 0.60, AST 20, ALT 37, Alkaline Phosphatase 141 H, Total Protein 5.4 L, Albumin 1.7 L, Globulin 3.7, Albumin/Globulin Ratio 0.5 L Micro: Microbiology 03/18/22 18:50 Stool Enteric Bacteriology - Final 03/17/22 11:56 Blood Culture (Wb) - Right Hand Blood Culture - Final GNR lactose director of enterprise applications 03/17/22 12:01 Blood Culture (Wb) - Anticubital Left Blood Culture - Final Escherichia coli 03/17/22 Unknown Urine, Clean Catch Urine Culture - Final Escherichia coli 03/17/22 17:15 Nasal Secretion SARS-CoV-2 Antigen (Rapid) - Final Radiography Diagnostic Testing: Radiology Impression Echocardiogram 03/17/22 15:18 Interpretation Summary The study was technically difficult. Contrast injection was performed. Left ventricular systolic function is normal. The estimated ejection fraction is 65 %. The left atrium is mildly enlarged. The right atrium is mildly enlarged. Mild focal mitral valve calcification of the anterior leaflet. Mitral valve doming/Hockey Sticking Moderate (2+) eccentric mitral valve insufficiency. Moderate (2+) tricuspid valve insufficiency. Mild diffuse aortic valve thickening. Mild focal aortic valve calcification. Right ventricular systolic pressure estimated to be 38 mmHg. Transmitral diastolic flow velocities suggest diastolic dysfunction (pseudonormal pattern). Ordering Physician: Maliha Webster Referring Physician: MD Marlene Sung Performed By: Cas Brown RCS Rhythm Strip Rhythm Strip: Sinus Rhythm Physical Exam Narrative Physical exam: General: Alert, Oriented x3, cooperative HEENT: Atraumatic Oral: Oral mucosa, furred tongue Neck: Supple Lungs: Diminished to auscultation Cardiovascular: HS I+II, irregular,tachycardic, holosystolic murmur / Abdomen: Bowel Sounds Present, Soft, Non Tender Extremities: No edema Skin: No rashes, No breakdown Neurological: Grossly intact Psych/Mental Status: Appropriate Assessment & Plan Assessment/Plan (1) Sepsis: (2) Calculus of proximal left ureter: (3) Atrial fibrillation with rapid ventricular response: PLAN: Plan 1. Sepsis secondary to acute infected kidney stone/Acute complicated E. coli UTI, improving Blood and urine cultures are growing GNR/E. Coli Status post uteroscopy/ureteral stent placement Will continue on IV Zosyn 2. A. fib with RVR secondary to current sepsis, resolved, now in NSR(been in NSR for hours) Patient with no previous history of A. fib. TSH 1.25 Continue on telemetry 3. PRADEEP, likely post-renal secondary to 8 mm kidney stone, improving Patient has hydronephrosis on CT of the abdomen and pelvis Previous creatinine was less than 1, admitting creatinine was 2.41 Now Cr 1.70 Will continue to monitor 4. Thrombocytopenia, new, platelet count 49, Likely secondary to sepsis/IV Zosyn Will dc IV zosyn Repeat labs in am 5. Hypertension, remains relatively hypotensive Will continue to monitor off IV fluids Continue to hold off on lisinopril in the light of PRADEEP 6. Hyponatremia, hypovolemic due to dehydration, resolved 7. Hypomagnesemia, resolved 8. Hyperlipidemia, continue statin 9. DVT PPx-SCDs Charges/Coding Visit Charges Inpatient E&M: 41635 Subs Hosp L2
[2022-03-19] MEDS: Digoxin 250 MCG/ML Ampul 500 MCG IV (19:26)
--- NOTE | 2022-03-19 19:32 | EKG12_ITS ---
Test Reason : TACHYCARDIA Blood Pressure : / mmHG Vent. Rate : 134 BPM Atrial Rate : 110 BPM P-R Int : 000 ms QRS Dur : 096 ms QT Int : 264 ms P-R-T Axes : 000 027 -40 degrees QTc Int : 394 ms Atrial fibrillation Nonspecific T wave abnormality Abnormal ECG Confirmed by JOSE RAMIREZ, PHYLLIS ([id number]), editorial director BEHZAD ALFORD ([id number]) on 03/23/2022 8:32:31 AM Referred By: AN Confirmed By:PHYLLIS GARCIA MD
--- NOTE | 2022-03-19 19:41 | EKG12_ITS ---
Test Reason : RHYTHM CHANGE Blood Pressure : / mmHG Vent. Rate : 087 BPM Atrial Rate : 087 BPM P-R Int : 132 ms QRS Dur : 090 ms QT Int : 312 ms P-R-T Axes : 022 025 007 degrees QTc Int : 375 ms Normal sinus rhythm Nonspecific T wave abnormality Abnormal ECG Confirmed by JOSE RAMIREZ, PHYLLIS ([id number]), web editor BEHZAD ALFORD ([id number]) on 03/20/2022 11:49:39 AM Referred By: CRUZ Confirmed By:PHYLLIS GARCIA MD
[2022-03-19] MEDS: Lactated Ringers 1,500 ML 100 ML IV (20:06)
[2022-03-20] VITALS (7 sets, daily range): BP systolic 113–137; BP diastolic 66–86; PULSE 71–101; RESP 16–18; TEMP 36.6–36.7; O2SAT 95–98
[2022-03-20 06:51] LABS: Absolute Lymphocyte Count 1.07 X10^3/uL (0.83-4.51); Absolute Neutrophil Count 13.7 X10^3/uL (2.0-7.7); Basophil# 0.07 X10^3/uL; Basophil% 0.4 % (0-1); Eosinophil# 0.01 X10^3/uL; Eosinophils% 0.1 % (0-5); Hematocrit 34.6 % (37-47); Hemoglobin 11.8 g/dL (12.0-15.0); Lymphocyte # 1.07 X10^3/ul (0.83-4.51); Lymphocyte % 6.6 % (19-41); Mean Corp Hgb Conc 34.1 g/dL (32-36); Mean Corpuscular Hgb 28.8 pg (27.0-32.0); Mean Corpuscular Volume 84.4 fL (81-99); Mean Platelet Vol. 12.3 fl (6.2-12.0); Monocyte# 1.01 X10^3/uL; Monocyte% 6.2 % (0-10); NRBC Flagged by Analyzer 0.1 % (0-5); Neutrophil % 84.5 % (47-70); POSITIVE COUNT YES; POSITIVE MORPHOLOGY YES; RBC Distribution Width CV 14.2 % (11.6-14.6); RBC Distribution Width SD 43.8 fl (35.1-43.9); White Blood Count 16.2 K/mm3 (4.4-11.0)
[2022-03-20 06:56] LABS: Differential Indicated SCAN CRITERIA MET; Platelet Count 44 K/mm3 (150-450)
[2022-03-20 07:12] LABS: ALB/GLOB Ratio 0.5 RATIO (0.9-2.4); AST(SGOT) 12 U/L (15-37); Alanine Aminotransfer ALT/SGPT 32 U/L (13-56); Albumin, Serum 1.6 g/dL (3.2-5.0); Alkaline Phosphatase 120 U/L (45-117); Anion Gap 6 (5-15); BUN 45 mg/dL (7-18); BUN/Creat Ratio 37.8 RATIO (10-20); Calcium,Total 8.1 mg/dL (8.5-10.1); Chloride 116 mmol/L (98-107); Creatinine, Serum 1.19 mg/dL (0.55-1.02); EST Glomerular Filtration Rate 47 mL/min (>60); Est Glom Filt Rate - Afr Amer 57 mL/min (>60); Estimated Creatinine Clearance 31.31 ml/min; Globulin 3.5 g/dL (2.2-4.2); Glucose 103 mg/dL (74-106); Potassium 3.3 mmol/L (3.5-5.1); Protein, Total 5.1 g/dL (6.4-8.2); Sodium Level 143 mmol/L (136-145)
[2022-03-20 07:14] LABS: Differential Comment SCANNED; Platelet Estimate MKD DEC (ADEQ)
[2022-03-20 07:44] LABS: Immature Platelet Fraction 9.4 % (1.0-7.9); Platelet Count 45 K/mm3 (150-450); RET-HE 25.4 pg (30-35); Reticulocyte Count 0.41 % (0.5-1.5)
[2022-03-20] MEDS: Lactated Ringers 1,500 ML 100 ML IV (07:57)
[2022-03-20] MEDS: BRIMONIDINE 0.2% 5ML BOTTLE 1 DRP RIGHT EYE (08:00)
[2022-03-20] MEDS: Cholecalciferol (VIT D3) 25 MCG TABLET (1,000 UNITS) PO (08:01)
[2022-03-20] MEDS: Magnesium Chloride 64 MG Delay Rel.Tablet 128 MG PO (08:01)
[2022-03-20] MEDS: Omega-3 Acid Ethyl Esters 1 GM Capsule PO (08:01)
[2022-03-20] MEDS: NYSTATIN 500,000 UNIT/5 ML UDC 500000 UNIT PO (08:01)
[2022-03-20] MEDS: Potassium Chloride Oral Tablet 20 MEQ 40 MEQ PO (10:54)
[2022-03-20 12:03] LABS: Pathologist Review Reviewed
[2022-03-20 12:03] LABS: Pathologist Review Reviewed
--- NOTE | 2022-03-20 12:56 | CON.PCM.ON_ITS ---
Assessment & Plan Assessment/Plan (1) Sepsis: Status: Acute Code(s): A41.9 - Sepsis, unspecified organism Plan: To continue Antibiotics. (2) Calculus of proximal left ureter: Status: Acute Code(s): N20.1 - Calculus of ureter Plan: S/P cystoscopy and L ureteric stenting. To continue observation. (3) Thrombocytopenia: Status: Acute Code(s): D69.6 - Thrombocytopenia, unspecified Plan: Etiology is most likely due to infection and antibiotics, Platelets are 44K today. Suggest observation, Platelet transfusion if PLT drop below 20K. HPI Consult Data Date of Service:: 03/20/22 PCP / Referring Provider: Dr. Sung Rosario MD Attending: Dr. Maliha Webster MD Chief Complaint Chief Complaint: Asked to see Pt for thrombocytopenia. History of Present Illness History of Present Illness: 76-year-old woman presented with nausea/vomiting and abdominal pain, found to have left ureteric stone. She was found to be septic, underwent cystoscopy and left ureteric stent placement. She was started on Zosyn. On the day of admission 03/17/2022, platelets were 170 and now has dropped to 44. Asked to see the patient for the acute drop in platelets. Advanced Directives Power of Replenishment Analyst: No Living Will: No PFSH Medical History COPD (chronic obstructive pulmonary disease) Diverticulosis GERD (gastroesophageal reflux disease) History of nephrolithiasis Hydronephrosis Hypertension Home Medications lactobacillus combination no.4 3 billion cell capsule (Probiotic) 1 ea PO DAILY SUPPLEMENT 03/10/17 [History Last Taken 03/14/22] simvastatin 40 mg tablet 40 mg PO QHS 03/10/17 [History Last Taken 03/14/22] timolol maleate 0.5 % eye drops 1 drp BID 03/10/17 [History Last Taken 03/17/22] brimonidine 0.2 % eye drops 1 drp EACH EYE BID GLUACOMA 03/17/22 [History Last Taken 03/17/22] cholecalciferol (vitamin D3) 25 mcg (1,000 unit) tablet 25 mcg PO DAILY SUPPLEMENT 03/17/22 [History Last Taken 03/14/22] magnesium oxide 400 mg PO DAILY 03/17/22 [History Last Taken 03/14/22] omega-3 fatty acids-vitamin E 1,000 mg capsule 1 cap PO DAILY SUPPLEMENT 03/17/22 [History Last Taken 03/14/22] cefdinir 300 mg capsule 300 mg PO BID 7 days #14 caps 03/20/22 [Rx Last Taken Unknown] Allergy/AdvReac Type Severity Reaction Status Date / Time No Known Allergies Allergy Verified 03/17/22 08:19 Family History Mother Heart disease Father Cancer liver cancer Surgical History History of herniorrhaphy Hx of hysterectomy Social History household members: spouse and family Smoking Status: Former smoker alcohol intake: never substance use type: does not use ROS Constitutional Constitutional: Reports fatigue; Denies fever(s) or night sweats ENT HEENT: Denies dysphagia, hoarseness or loss taste/smell Cardiovascular Cardiovascular: Denies chest pain, clubbing or diaphoresis Respiratory/Chest Respiratory/Chest: Denies chest tightness, cough or dyspnea Gastrointestinal Gastrointestinal: Denies abdominal pain or anorexia Genitourinary Genitourinary: Denies change in urinary stream Musculoskeletal Musculoskeletal: Denies abnormal gait or back pain Integumentary Integumentary: Denies alopecia, changing lesions or dry skin Neurologic Neurologic: Denies abnormal speech, behavior changes or confusion Psychiatric Psychiatric: Denies anxiety or depression Endocrine Endocrinology: Denies cold intolerance, flushing or heat intolerance Hematologic/Lymphatic Hematologic/Lymphatic: Denies easy bleeding, easy bruising or lymphadenopathy Physical Exam Narrative Elderly woman, sitting in a chair at bedside, eating lunch. Const alert, oriented x3 and no apparent distress HEENT normocephalic Eyes PERRL, conjunctivae normal and no scleral icterus Neck no lymphadenopathy Lymph Lymphatic: no lymphadenopathy noted Chest inspection of chest normal Resp normal respiratory effort and clear to auscultation bilaterally Cardio S1 normal heart sound and S2 normal heart sound GI normal to inspection, nondistended, normoactive bowel sounds Extremity normal to inspection and no clubbing, cyanosis or edema Skin no rashes or lesions noted Neuro CN's II-XII intact bilaterally and moves all extremities Psych mental status grossly normal Vital Signs Temperature 97.9 F 03/20/22 08:08 Temperature Source Oral 03/20/22 08:08 Pulse Rate 77 03/20/22 10:59 Pulse Strength Normal (2+) 03/20/22 02:39 Respiratory Rate 16 03/20/22 08:08 Respiratory Effort Non-Labored 03/20/22 08:13 Respiratory Depth Normal 03/20/22 08:13 Respiratory Pattern Normal 03/20/22 08:13 Blood Pressure 137/66 H 03/20/22 08:08 Blood Pressure Mean 89 03/20/22 08:08 Blood Pressure Source Monitor 03/20/22 08:08 Blood Pressure Position Sitting 03/20/22 08:08 Blood Pressure Location Right Arm 03/20/22 08:08 Pulse Ox 95 03/20/22 08:08 Oxygen Delivery Method Room Air 03/20/22 08:13 Oxygen Flow Rate (L/min) 1 03/18/22 05:34 Laboratory Results - last 24 hr 03/19/22 06:39: Diff Path Review Reviewed 03/20/22 06:10: WBC 16.2 H, RBC 4.10 L, Hgb 11.8 L, Hct 34.6 L, MCV 84.4, MCH 28.8, MCHC 34.1, RDW Std Deviation 43.8, RDW Coeff of Isaiah 14.2, Plt Count 44 L*, MPV 12.3 H, Immature Gran % (Auto) 2.200 H, Neut % (Auto) 84.5 H, Lymph % (Auto) 6.6 L, [place] % (Auto) 6.2, Eos % (Auto) 0.1, Baso % (Auto) 0.4, Absolute Neuts (auto) 13.7 H, Absolute Lymphs (auto) 1.07, Nucleated RBC % 0.1, Differential Comment SCANNED, Diff Path Review Reviewed, Platelet Estimate MKD 03/20/22 06:10: Sodium 143, Potassium 3.3 L, Chloride 116 H, Carbon Dioxide 21.0, Anion Gap 6, BUN 45 H, Creatinine 1.19 H, Estim Creat Clear Calc 31.31, Est GFR (MDRD) Af Amer 57 L, Est GFR (MDRD) Non-Af 47 L, BUN/Creatinine Ratio 37.8 H, Glucose 103, Calcium 8.1 L, Total Bilirubin 0.70, AST 12 L, ALT 32, Alkaline Phosphatase 120 H, Total Protein 5.1 L, Albumin 1.6 L, Globulin 3.5, Albumin/Globulin Ratio 0.5 L 03/20/22 06:10: Immature Plt Fraction 9.4 H, Retic Count 0.41 L, Immature Retic Fraction 6.10, Retic Hgb Equivalent 25.4 L Microbiology 03/18/22 18:50 Stool Enteric Bacteriology - Final Diagnostic Data Abdomen/Pelvis CT 03/17/22 08:45 IMPRESSION: 8 mm obstructing stone at the left ureteropelvic junction with moderate hydronephrosis and perinephric edema. Electronically Signed: Calvin Perez MD at 9:28 EDT , Echocardiogram 03/17/22 15:18 Interpretation Summary The study was technically difficult. Contrast injection was performed. Left ventricular systolic function is normal. The estimated ejection fraction is 65 %. The left atrium is mildly enlarged. The right atrium is mildly enlarged. Mild focal mitral valve calcification of the anterior leaflet. Mitral valve doming/Hockey Sticking Moderate (2+) eccentric mitral valve insufficiency. Moderate (2+) tricuspid valve insufficiency. Mild diffuse aortic valve thickening. Mild focal aortic valve calcification. Right ventricular systolic pressure estimated to be 38 mmHg. Transmitral diastolic flow velocities suggest diastolic dysfunction (pseudonormal pattern). Ordering Physician: Maliha Webster Referring Physician: MD Marlene Sung Performed By: Cas Brown RCS Charges/Coding Visit Charges Office Visits / Consults: [id number] IP Consult L3
--- NOTE | 2022-03-20 14:34 | DCINST_ITS ---
Discharge Instructions Diet Discharge Diet: No restrictions Activity Discharge Activity: Return to Normal Activity Follow Up Care Test Results: Test results from this visit will be discussed in further detail at your follow- up appointment, if applicable. Discharge Plan Admission Admit Date/Time: 03/17/22 13:52 Primary Reason for Your Visit: Acute UTI/infected kidney stone Attending Provider: Maliha Webster Primary Care Provider: Sung Rosario Consulting Providers: Basilio Cox ; Walt Stark ; Chaim Simeon ; Janis Sr NP ; Jermaine Mccauley Instructions Additional Instructions / Restrictions: Complete your antibiotics Continue to keep yourself hydrated Follow-up with your primary care doctor within 1 week for repeat blood work to check on your kidney function Follow-up with Dr. Mak, urologist in 1 to 2 weeks Discharge Orders/Prescriptions Prescriptions: New cefdinir 300 mg capsule 300 mg PO BID 7 Days Qty: 14 0RF Continued simvastatin 40 MG tablet 40 mg PO QHS Label Comments: cholesterol timolol maleate 1 DROP drops 1 drp Each Eye BID Label Comments: glaucoma Probiotic 1 EACH capsule 1 ea PO DAILY Label Comments: supplement brimonidine 0.2 % drops 1 drp EACH EYE BID Label Comments: INSTILL 1 DROP IN BOTH EYES TWICE DAILY omega-3 fatty acids-vitamin E 1,000 mg Capsule 1 cap PO DAILY cholecalciferol (vitamin D3) 25 mcg (1,000 unit) Tablet 25 mcg PO DAILY magnesium oxide 400 mg magnesium Tablet 400 mg PO DAILY Discontinued lisinopril 10 MG tablet 1 tab PO DAILY Label Comments: blood pressure Referrals / Follow Up: Pati Mak MD [STAFF PHYSICIAN] - See Referral Note (see in 1-2 weeks ) Sung Rosario MD [Primary Care Provider] - In 1 Week Basilio Cox MD [STAFF PHYSICIAN] - Within 1 Week Disposition Disposition (needs filled in before D/C Order can be placed): Home, Self Care
--- NOTE | 2022-03-20 14:37 | PCM.DC.SUM ---
Providers Date of Admission: 03/17/22 Date of Discharge: 03/20/22 Primary Care Physician: Dr. Sung Rosario MD Consultations 03/17/22 15:27 Consult: Cardiology Routine Consulting Provider: Basilio Cox Reason for Consult: A. fib with RVR EMERGENT Consult: No Notified: Yes Date Notified: 03/17/22 Time Notified: 15:27 Method of Notification: Verbal Method of Consult:: In-Person 03/18/22 05:58 Consult: Manager Business / Pulmonary Medicine Routine Consulting Provider: Pulmonary Medicine [facility] Reason for Consult: hypotension, sepsis EMERGENT Consult: No MD Notified: Yes Date Notified: 03/18/22 Time Notified: 05:50 Method of Notification: Verbal 03/20/22 09:11 Consult: Oncology/Hematology Routine Consulting Provider: Jermaine Mccauley Reason for Consult: Thrombocytopenia EMERGENT Consult: No Notified: Yes Date Notified: 03/20/22 Time Notified: 09:32 Method of Notification: paged via cat scanner operator Reason For Visit: SEPSIS/COMPLICATED UTI Diagnosis Discharge Diagnosis (1) Sepsis: Status: Acute Code(s): A41.9 - Sepsis, unspecified organism (2) Calculus of proximal left ureter: Status: Acute Code(s): N20.1 - Calculus of ureter (3) Thrombocytopenia: Status: Acute Code(s): D69.6 - Thrombocytopenia, unspecified Medications at Discharge Home Medications lactobacillus combination no.4 3 billion cell capsule (Probiotic) 1 ea PO DAILY SUPPLEMENT 03/10/17 simvastatin 40 mg tablet 40 mg PO QHS 03/10/17 timolol maleate 0.5 % eye drops 1 drp BID 03/10/17 brimonidine 0.2 % eye drops 1 drp EACH EYE BID GLUACOMA 03/17/22 cholecalciferol (vitamin D3) 25 mcg (1,000 unit) tablet 25 mcg PO DAILY SUPPLEMENT 03/17/22 magnesium oxide 400 mg PO DAILY 03/17/22 omega-3 fatty acids-vitamin E 1,000 mg capsule 1 cap PO DAILY SUPPLEMENT 03/17/22 cefdinir 300 mg capsule 300 mg PO BID 7 days #14 caps 03/20/22 Hospital Course Operations None Procedures 2-D Echocardiogram Summary of Care Provided Minutes Spent on Discharge: 45 Hospital Course: 76-year-old female with past medical history of hypertension and remote history of kidney stones who comes in with a 1 week history of bilateral flank and back pain as well as a 3-day history of nausea and vomiting. Patient's vitals in the ED were relatively low. Her WBC count was 18.0 with bandemia 18%. Her creatinine was 2.41. Previous creatinine a year ago was normal. Magnesium was 1.8. Her UA was suggestive of acute UTI. CT of the abdomen and pelvis was suggestive of a large 8 mm obstructing stone at the left ureteropelvic junction with moderate hydronephrosis and perinephric edema. Urology was consulted from the ED. Patient underwent an emergent cystoscopy with right ureteral stent placement. Leonid procedure, patient developed A. fib with RVR, was given 20 mg of IV Cardizem with drop in her blood pressure. Cardiology was consulted. Patient received a lot of IV fluid boluses. Her blood pressures were frequently in the 60s systolic. She had an art line placed in PACU. Blood pressure however was stable. Intraprocedure, patient was found to have purulent urine in her bladder as well as purulent urine from the left ureter after the stent was placed. Patient was managed subsequently in ICU. She was maintained on IV fluids. She did not require pressors. She was continued on IV Zosyn. Urine cultures came back positive for E. coli. Her blood cultures were also positive for gram-negative rods. Patient continued to improve and was transferred to the progressive care unit. Her urine cultures that were positive for E. coli with pansensitive. Patient's antibiotics were narrowed down to IV ceftriaxone. She flipped back into A. fib with RVR on 2 PM. She received a dose of IV digoxin. Heart rate became better controlled, but remained in atrial fibrillation. 2D echo done showed EF of 55% x +2 mitral dysfunction. Patient will follow up with cardiology in the outpatient. Patient was also found to have thrombocytopenia believed to be secondary to sepsis as well as use of IV Zosyn. Hematology was consulted and recommended watchful waiting. Patient's creatinine improved from 2.40 1.19 at discharge. Patient knows to keep herself hydrated. She was discharged on 6 more days of oral cefdinir making a total of 10 days of antibiotics. She will follow-up with her primary care doctor within 1 week for repeat blood work. She would also follow-up with urology for further evaluation and left ureteral stent evaluation. Physical Exam Narrative Physical exam: General: Alert, Oriented x3, cooperative HEENT: Atraumatic Oral: Oral mucosa, furred tongue Neck: Supple Lungs: Diminished to auscultation Cardiovascular: HS I+II, irregular,tachycardic, holosystolic murmur 3/6 Abdomen: Bowel Sounds Present, Soft, Non Tender Extremities: No edema Skin: No rashes, No breakdown Neurological: Grossly intact Psych/Mental Status: Appropriate Weight / BMI Weight Weight: 67.8 kg Body Mass Index (BMI) 26.0 ABG / Lab / Microbiology Data Result Diagrams: 03/20/22 06:10 03/20/22 06:10 Laboratory: Laboratory Results - last 24 hr 03/19/22 06:39: Diff Path Review Reviewed 03/20/22 06:10: WBC 16.2 H, RBC 4.10 L, Hgb 11.8 L, Hct 34.6 L, MCV 84.4, MCH 28.8, MCHC 34.1, RDW Std Deviation 43.8, RDW Coeff of Isaiah 14.2, Plt Count 44 L*, MPV 12.3 H, Immature Gran % (Auto) 2.200 H, Neut % (Auto) 84.5 H, Lymph % (Auto) 6.6 L, [place] % (Auto) 6.2, Eos % (Auto) 0.1, Baso % (Auto) 0.4, Absolute Neuts (auto) 13.7 H, Absolute Lymphs (auto) 1.07, Nucleated RBC % 0.1, Differential Comment SCANNED, Diff Path Review Reviewed, Platelet Estimate MKD 03/20/22 06:10: Sodium 143, Potassium 3.3 L, Chloride 116 H, Carbon Dioxide 21.0, Anion Gap 6, BUN 45 H, Creatinine 1.19 H, Estim Creat Clear Calc 31.31, Est GFR (MDRD) Af Amer 57 L, Est GFR (MDRD) Non-Af 47 L, BUN/Creatinine Ratio 37.8 H, Glucose 103, Calcium 8.1 L, Total Bilirubin 0.70, AST 12 L, ALT 32, Alkaline Phosphatase 120 H, Total Protein 5.1 L, Albumin 1.6 L, Globulin 3.5, Albumin/Globulin Ratio 0.5 L 03/20/22 06:10: Immature Plt Fraction 9.4 H, Retic Count 0.41 L, Immature Retic Fraction 6.10, Retic Hgb Equivalent 25.4 L Microbiology: Microbiology 03/18/22 18:50 Stool Enteric Bacteriology - Final 03/17/22 11:56 Blood Culture (Wb) - Right Hand Blood Culture - Final GNR lactose 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 03/17/22 12:01 Blood Culture (Wb) - Anticubital Left Blood Culture - Final Escherichia coli 03/17/22 Unknown Urine, Clean Catch Urine Culture - Final Escherichia coli 03/17/22 17:15 Nasal Secretion SARS-CoV-2 Antigen (Rapid) - Final D/C Instructions Discharge Diet: No restrictions Meaningful Use Info Meaningful Use Diagnoses (Choose all that apply): None applicable Discharge Plan Admission Admit Date/Time: 03/17/22 13:52 Primary Reason for Your Visit: Acute UTI/infected kidney stone Attending Provider: Maliha Webster Primary Care Provider: Sung Rosario Consulting Providers: Basilio Cox ; Walt Stark ; Chaim Simeon ; Melva Sr NP ; Jermaine Mccauley Instructions Additional Instructions / Restrictions: Complete your antibiotics Continue to keep yourself hydrated Follow-up with your primary care doctor within 1 week for repeat blood work to check on your kidney function Follow-up with Dr. Mak, urologist in 1 to 2 weeks Discharge Orders/Prescriptions Prescriptions: New cefdinir 300 mg capsule 300 mg PO BID 7 Days Qty: 14 0RF Continued simvastatin 40 MG tablet 40 mg PO QHS Label Comments: cholesterol timolol maleate 1 DROP drops 1 drp Each Eye BID Label Comments: glaucoma Probiotic 1 EACH capsule 1 ea PO DAILY Label Comments: supplement brimonidine 0.2 % drops 1 drp EACH EYE BID Label Comments: INSTILL 1 DROP IN BOTH EYES TWICE DAILY omega-3 fatty acids-vitamin E 1,000 mg Capsule 1 cap PO DAILY cholecalciferol (vitamin D3) 25 mcg (1,000 unit) Tablet 25 mcg PO DAILY magnesium oxide 400 mg magnesium Tablet 400 mg PO DAILY Discontinued lisinopril 10 MG tablet 1 tab PO DAILY Label Comments: blood pressure Referrals / Follow Up: Pati Mak MD [STAFF PHYSICIAN] - See Referral Note (see in 1-2 weeks ) Sung Rosario MD [Primary Care Provider] - In 1 Week Basilio Cox MD [STAFF PHYSICIAN] - Within 1 Week Disposition Disposition (needs filled in before D/C Order can be placed): Home, Self Care Charges/Coding Visit Charges Inpatient E&M: 54344 Disch Hosp
--- NOTE | 2022-03-20 15:18 | NURSING ---
spouse, clifford, notified of pts dc.
== END 2022-03-20 16:20 | disposition home or self-care (01) | DRG 854 ==
LOC: ED 14:15 → PCU 14:31 → ICU 18:24 → PCU 03-18 13:15
PROVIDERS: Internal Medicine Critical Care Medicine; Urology; Admitting Provider Internal Medicine; Emergency Provider Emergency Medicine; PCP Family Medicine; Visit Provider Internal Medicine
PROC: 0T778DZ Dilation of Left Ureter with Intraluminal Device, Via Natural or Artificial Opening Endoscopic (ICD-10-PCS; CPT 52332; principal; 2022-03-17 17:40)
DX: A41.51 Sepsis due to Escherichia coli [E. coli] (principal); E87.1 Hypo-osmolality and hyponatremia; N17.9 Acute kidney failure, unspecified; N13.6 Pyonephrosis; I48.91 Unspecified atrial fibrillation; J44.9 Chronic obstructive pulmonary disease, unspecified; B96.20 Unspecified Escherichia coli [E. coli] as the cause of diseases classified elsewhere; I10 Essential (primary) hypertension; E78.5 Hyperlipidemia, unspecified; D69.59 Other secondary thrombocytopenia; K21.9 Gastro-esophageal reflux disease without esophagitis; Z66 Do not resuscitate; Z87.891 Personal history of nicotine dependence; Z79.899 Other long term (current) drug therapy
CPT/HCPCS: 36415; 74176; 76000; 80048; 80053; 80076; 81001; 82962; 83690; 83735; 84100; 84443; 85025; 85045; 87040; 87077; 87086; 87088; 87186; 87426; 87506; 93005; 93306; 97162; 97166; 97530; 97535; 99284; J7030; J7040; J7120; Q9957; A4216; C2617; C8929; J0696; J2405

== ENCOUNTER 2022-05-14 11:49 | Day surgery (SDC) | payer MEDICARE, SELFPAY ==
[2022-05-14] MEDS: Lactated Ringers 1,000 ML 15 ML IV (12:00)
[2022-05-14 12:21] VITALS: BP 131/63; PULSE 68; RESP 16; TEMP 36.4; O2SAT 100; BMI 23.6
[2022-05-14] MEDS: Cefazolin 2 GM in 0.9% Normal Saline 100 ML IV (15:00)
--- NOTE | 2022-05-14 15:25 | DCINST_ITS ---
Discharge Instructions Diet Discharge Diet: No restrictions Activity Discharge Activity: Return to Normal Activity Dressing / Incision Call your doctor if you observe: Fever of 101 or Higher, Inability to urinate and Inability to have a bowel movement Follow Up Care Please Follow Up With: Pati Mak MD When: Call office for appointment, will need to be seen in approximately 2 to 3 weeks with a KUB for possible stent removal Test Results: Test results from this visit will be discussed in further detail at your follow- up appointment, if applicable. Discharge Plan Admission Attending Provider: Pati Mak Primary Care Provider: Sung Rosario Discharge Orders/Prescriptions Prescriptions: New oxycodone-acetaminophen [Percocet] 5-325 mg tablet 1 tab PO Q8H PRN (Reason: pain) 3 Days Qty: 10 0RF cephalexin [cephalexin] 500 mg capsule 500 mg PO Q12 3 Days Qty: 6 0RF Continued simvastatin 40 MG tablet 40 mg PO QHS Label Comments: cholesterol timolol maleate 1 DROP drops 1 drp Each Eye BID Label Comments: glaucoma Probiotic 1 EACH capsule 1 ea PO DAILY Label Comments: supplement brimonidine 0.2 % drops 1 drp EACH EYE BID Label Comments: INSTILL 1 DROP IN BOTH EYES TWICE DAILY omega-3 fatty acids-vitamin E 1,000 mg Capsule 1 cap PO DAILY cholecalciferol (vitamin D3) 25 mcg (1,000 unit) Tablet 25 mcg PO DAILY magnesium oxide 400 mg magnesium Tablet 400 mg PO DAILY Referrals / Follow Up: Sung Rosario MD [Primary Care Provider] - Disposition Disposition (needs filled in before D/C Order can be placed): Home, Self Care
--- NOTE | 2022-05-14 15:27 | PCM.OPRPT ---
Report of Operation Date of Procedure: 05/14/22 Pre-Operative Diagnosis: Left UPJ calculus Post-Operative Diagnosis: Left renal calculus Surgery/Procedure Performed:: Left renal extracorporal shockwave lithotripsy Surgeon: Pati Mak Type of Anesthesia: General Specimen's removed: None Description of Procedure: The patient is a 76-year-old female who had an a episode of sepsis secondary to an obstructing left ureteral calculus. She now presents for shockwave lithotripsy after having been stented and recovered from her infection. Informed consent was obtained. The patient was taken to the operating room and placed on the operating room table. Anesthesia monitored the head, neck, airway, IV access and vital signs throughout the case. Once anesthesia was apparently administered the patient was positioned and the stone was easily identified within the left kidney. 3000 shocks were applied and the stone appeared to be well fragmented at the conclusion of the case. There were no complications during this procedure. The patient was then awakened and taken to the recovery room in good condition. Grafts/Implants Used: None Complications None Admit VTE Documentation VTE Present on Admission: Yes VTE Mechan Device Prophylaxis: SCD's VTE Pharm Prophylaxis ordered?: No Reason prophylaxis not ordered:: Treatment Not Indicated
[2022-05-14 16:02] VITALS: BP 131/63; BP 150/69; PULSE 76; RESP 14; TEMP 36.2; O2SAT 90
[2022-05-14 16:15] VITALS: BP 131/63; BP 150/69; PULSE 74; RESP 16; O2SAT 96
[2022-05-14 16:30] VITALS: BP 131/63; BP 160/78; PULSE 72; RESP 16; TEMP 36.6; O2SAT 97
[2022-05-14 18:14] VITALS: BP 131/63; BP 175/74; PULSE 50; RESP 16; TEMP 36.1; O2SAT 98
== END 2022-05-14 18:20 | disposition home or self-care (01) ==
LOC: SDC 11:49 → AC 11:51
PROVIDERS: PCP Family Medicine; Referring Provider Urology; Visit Provider Urology
PROC: (CPT 50590; principal; 2022-05-14 13:30)
DX: N13.6 Pyonephrosis (principal); J44.9 Chronic obstructive pulmonary disease, unspecified; I48.0 Paroxysmal atrial fibrillation; I10 Essential (primary) hypertension; K21.9 Gastro-esophageal reflux disease without esophagitis; Z87.891 Personal history of nicotine dependence; Z79.899 Other long term (current) drug therapy; E78.00 Pure hypercholesterolemia, unspecified
CPT/HCPCS: 00873; 50590; J7120; J2405

== ENCOUNTER → 2022-05-26 | Outpatient (CLI) | payer MEDICARE, SELFPAY ==
--- NOTE | 2022-05-26 15:38 | RAD_ITS ---
STUDY: X-RAY - ABDOMEN/PELVIS REASON FOR EXAM: Female, 76 years old. STONES -- KUB TECHNIQUE: Single view COMPARISON: None. FINDINGS: There is a left double-J catheter. Normal visualized lung bases. There is a mild small and large bowel ileus. There is no demonstrated free abdominal air. The visualized liver, spleen and kidneys are grossly normal in size and morphology. Normal soft tissue structures. Probable 8mm bone island left supra-acetabular region. Curvilinear sutures is seen in the inguinal regions bilaterally likely representing prior inguinal herniorrhaphy. RAD/Abdomen Single View IMPRESSION: No evidence of nephrolithiasis. Left double-J stent. Mild small and large bowel ileus. Electronically Signed: Sung Angeles MD, BUD at 17:42 EDT ,
== END | disposition home or self-care (01) ==
LOC: MTRAD 15:36
PROVIDERS: PCP Family Medicine; Referring Provider Urology; Visit Provider Urology
DX: N20.0 Calculus of kidney (principal)
CPT/HCPCS: 74018

== ENCOUNTER → 2022-08-18 | Outpatient (CLI) | payer MEDICARE, SELFPAY | END | disposition home or self-care (01) | LOC: PSN 10:56 | PROVIDERS: PCP Family Medicine; Referring Provider Nurse Practitioner Gerontology; Visit Provider Nurse Practitioner Gerontology | DX: I48.0 Paroxysmal atrial fibrillation (principal) | CPT/HCPCS: 93225; 93226 ==